=== PATIENT | male | born 1955 | race Caucasian/White ===

== ENCOUNTER 2020-01-26 08:00 | Outpatient (NON) | payer BC, SELFPAY ==
[2020-01-27 13:05] LABS: SARS-CoV-2 RNA PCR Negative
== END 2020-01-26 08:01 ==
PROVIDERS: PCP Family Medicine; Visit Provider Physician Assistant
DX: R07.89 Other chest pain (principal); R09.89 Other specified symptoms and signs involving the circulatory and respiratory systems; Z20.828 Contact with and (suspected) exposure to other viral communicable diseases
CPT/HCPCS: 87635; C9803; U0003

== ENCOUNTER 2020-01-26 23:34 | Emergency (ER) | payer BC, SELFPAY ==
--- NOTE | ~2020-01-26 | XR_ITS ---
EXAMINATION: XR chest 1V portable DATE: 01/27/2020 00:47 INDICATION: Chest pain. TECHNIQUE: A single frontal view of the chest was obtained. COMPARISON: None. FINDINGS: The chest demonstrates clear lungs without pneumonia, pleural effusion, or pneumothorax. Th e heart size is normal. IMPRESSION: 1. No acute cardiopulmonary disease. Reviewed, dictated and finalized at location A.
--- NOTE | 2020-01-26 23:43 | ECG_ITS ---
Measurements Intervals [place] Rate: 67 P: 11 SD: 163 QRS: -9 QRSD: 102 T: 17 QT: 395 QTc: 420 Interpretive Statements SINUS RHYTHM BORDERLINE T WAVE ABNORMALITY- INFERIOR LEADS BASELINE ARTIFACT- I, II, III, AVR, AVL, V1 BORDERLINE ECG Electronically Signed On 01-27-2020 7:12:23 CDT by Irving Dejesus D.O.
[2020-01-26 23:47] VITALS: BP 160/93; PULSE 71; RESP 22; TEMP 36.6; O2SAT 100
[2020-01-27] VITALS (8 sets, daily range): BP systolic 97–161; BP diastolic 63–90; PULSE 58–67; RESP 15–24; TEMP 36.3–37.1; O2SAT 97–100
[2020-01-27 00:05] LABS: Basophils Absolute Auto 0.1 K/mm3 (0.0-0.1); Basophils Percent Auto 0.7 % (0.2-1.2); Eosinophils Absolute Auto 0.1 K/mm3 (0-0.3); Eosinophils Percent Auto 0.6 % (0-4.4); Hematocrit 43.9 % (42.0-52.0); Hemoglobin 15.3 g/dL (14.0-18.0); Immature Granulocyte Absolute 0.03 K/mm3 (0.00-0.031); Immature Granulocyte Percent A 0.4 % (0-0.5); Lymphocytes Absolute Auto 2.87 K/mm3 (0.9-3.2); Lymphocytes Percent Auto 35.2 % (18.3-44.2); Mean Corpuscular HGB Conc 34.9 g/dl (32-36); Mean Corpuscular Hemoglobin 31.2 pg (26-34); Mean Corpuscular Volume 89.4 fl (80-100); Mean Platelet Volume 9.2 fl (7.4-10.4); Monocytes Percent Auto 12.4 % (2.6-8.5); Neutrophils Absolute Auto 4.1 K/mm3 (1.3-6.7); Neutrophils Percent Auto 50.7 % (45.5-73.1); Platelet Count Result 298 k/mm3 (150-375); Red Blood Count 4.91 M/mm3 (4.6-6.20); White Blood Count 8.2 K/mm3 (4.5-10.0)
[2020-01-27 00:12] LABS: Prothrombin Time 13.3 Seconds (11.1-14.7)
[2020-01-27 00:13] LABS: Partial Thromboplastin Time 30.9 SECONDS (22.3-36.8)
[2020-01-27] MEDS: ASPIRIN 81 MG CHEWABLE TABLET 324 MG PO (00:15)
[2020-01-27 00:16] LABS: Blood Urea Nitrogen 11 mg/dL (9-20); Carbon Dioxide 28 mmol/L (22-30); Chloride 100 mmol/L (98-107); Estimated CRCL calculation 100 ml/min; Estimated Glomerular Filt Rate > 60; Glucose 125 mg/dL (75-110); Sodium 135 mmol/L (137-145)
[2020-01-27 00:27] LABS: Troponin I < 0.012 ng/mL (0.000-0.034)
--- NOTE | 2020-01-27 02:27 | PC.NURSE ---
Called lab to add on BNP
--- NOTE | 2020-01-27 02:35 | ED.CHESTPAIN ---
HPI - Chest Pain General Chief Complaint: Chest Pain Stated Complaint: chest tightness Time Seen by Provider: 01/27/20 02:21 History of Present Illness HPI narrative: Patient presents with his son for chest tightness for 2 days, and muscle aches. Started 4 days ago, and got worse yesterday. He has not had any fever, chills or sweats. He was tested for the virus yesterday and hopes to get the results today. He has been very good about isolation, but is supposed to go back to work next week. He he teaches food safety. His appetite is good bowels are moving making normal urine, no trouble breathing no cough. He has high blood pressure which is well controlled on his medications. He does not smoke drink or do drugs His surgeries include circumcision and wisdom teeth. MD complaint: chest pain Related Data Home Medications Medication Instructions Recorded Confirmed multivitamin 1 tablet PO DAILY 09/29/19 Allergies Allergy/AdvReac Type Severity Reaction Status Date / Time codeine Allergy Unknown Unknown Verified 09/30/19 11:01 Review of Systems Review of Systems: Narrative: CONSTITUTIONAL: Denies fever, chills, or sweats. EYES: Denies visual changes, redness, or discharge. ENT: Denies rhinorrhea, congestion, sore throat, or otalgia. CARDIOVASCULAR: Denies palpitations, or edema. RESPIRATORY: Denies cough or dyspnea. GASTROINTESTINAL: Denies abdominal pain, nausea, vomiting, or diarrhea. GENITOURINARY: Denies dysuria or hematuria. SKIN: Denies rash or itching. MUSCULOSKELETAL: Denies back pain, joint pain NEUROLOGIC: Denies headache, numbness, or weakness. PSYCHIATRIC: Denies anxiety or depression. [facility] Past Medical History Medical History (Updated 01/27/20 @ 04:10 by Haydee Chamberlain MD) Body aches Surgical History Surgical History History of circumcision History of wisdom tooth extraction Family History Family History Father Patient's father is in good health Sibling Family history of pancreatic cancer Mother Family history of malignant neoplasm of thyroid Social History Social History (Updated 01/27/20 @ 02:38 by Haydee Chamberlain MD) Smoking status: Never smoker Alcohol intake: current Substance use: never Exam Narrative: Exam Narrative: GENERAL: Well-appearing, well-nourished, and in no acute distress.Overweight HEAD: Normocephalic, atraumatic. EYES: PERRLA and EOMI. ENT: Nares clear, no rhinorrhea or epistaxis. Mucous membranes moist. NECK: Supple. CHEST: Clear to auscultation. No respiratory distress. HEART: Regular rate and rhythm. No murmur heard. Normal peripheral pulses. ABDOMEN: Soft, nontender, nondistended, normal active bowel sounds. EXTREMITIES: Normal range of motion. No edema. SKIN: Warm, dry, no rash. NEURO: No focal deficits. Alert and oriented x3. PSYCH: Normal mood and affect.Charming. Course Reevaluation(s) Reevaluation #1: As the patient was getting his blood drawn for the second troponin, he became diaphoretic and pale, and his blood pressure dropped. IV fluids were started, but he regained his composure quickly. His test did not show any signs of heart disease, and he can be discharged to Dr. Roger's care. Date: 01/27/20 Time: 04:11 Vital Signs Vital signs: Vital Signs Temperature 97.9 F 01/26/20 23:47 Pulse Rate 71 01/26/20 23:47 Respiratory Rate 22 H 01/26/20 23:47 Blood Pressure 160/93 H 01/26/20 23:47 Pulse Oximetry 100 01/26/20 23:47 Temperature 98.7 F 01/27/20 02:22 Pulse Rate 58 L 01/27/20 03:32 Respiratory Rate 20 01/27/20 03:32 Blood Pressure 121/72 01/27/20 03:29 Pulse Oximetry 99 01/27/20 03:32 MDM - Chest Pain MDM Narrative Medical decision making narrative: Patient is atypical in his presentation for chest pain. His labs EKG and chest x-ray do not support any coronary artery disease. We will obtain
[2020-01-27 02:53] LABS: NT Pro B Type Natriuretic Pept 42 PG/ML (5-100)
[2020-01-27] MEDS: SODIUM CHLORIDE 0.9% IV 1,000 ML 999 ML (03:08)
--- NOTE | 2020-01-27 03:15 | PC.NURSE ---
While drawing patient's 3 hour troponin, patient sat up and began to feel off and became diaphoretic. Patient's heart rate began to range from 53-56 and blood pressure was 97/63. EDP Bulmaro was notified and 1L normal saline was started on patient.
[2020-01-27 03:38] LABS: Troponin I < 0.012 ng/mL (0.000-0.034)
== END 2020-01-27 04:24 | disposition home or self-care (01) ==
PROVIDERS: Emergency Provider Emergency Medicine; PCP Family Medicine
DX: R07.89 Other chest pain (principal); I10 Essential (primary) hypertension; R55 Syncope and collapse; M79.10 Myalgia, unspecified site; R94.31 Abnormal electrocardiogram [ECG] [EKG]
CPT/HCPCS: 36415; 71045; 80048; 83880; 84484; 85025; 85610; 85730; 93005; 96360; 99284; A9270; J7030

== ENCOUNTER 2020-09-27 10:47 | Observation (INO) | payer BC, SELFPAY ==
--- NOTE | ~2020-09-27 | XR_ITS ---
EXAMINATION: XR chest 2V EXAM DATE: 09/27/2020 11:55 INDICATION: Mid to left-sided chest pain. TECHNIQUE: Frontal and lateral projections of the chest obtained and reviewed. Comparison is made to prior examination from 01/27/2020. FINDINGS: The lungs are clear. There are no pleural effusions. The cardiomediastinal silhouette is within nor mal limits. There is no pneumothorax suspected. The bones and soft tissues are unremarkable. IMPRESSION: No acute cardiopulmonary findings. Reviewed, dictated and finalized at location B. CAL AND SCIENTIFIC ILLUSTRATOR
--- NOTE | 2020-09-27 10:50 | ECG_ITS ---
Measurements Intervals [place] Rate: 84 P: 12 VT: 175 QRS: 12 QRSD: 92 T: 33 QT: 346 QTc: 409 Interpretive Statements SINUS RHYTHM BORDERLINE T WAVE ABNORMALITY- ANTEROLATERAL LEADS BASELINE ARTIFACT- I, II, III, AVR, AVL, AVF, V4-V6 BORDERLINE ECG Electronically Signed On 09-27-2020 12:07:12 CERTIFIED OPHTHALMIC TECHNICIAN by Irving Dejesus D.O.
[2020-09-27 10:51] VITALS: BP 147/96; PULSE 87; RESP 16; TEMP 36.3; O2SAT 99
[2020-09-27 11:12] LABS: Basophils Absolute Auto 0.1 K/mm3 (0.0-0.1); Basophils Percent Auto 0.9 % (0.2-1.2); Eosinophils Percent Auto 0.4 % (0-4.4); Hematocrit 43.7 % (42.0-52.0); Hemoglobin 15.2 g/dL (14.0-18.0); Immature Granulocyte Absolute 0.03 K/mm3 (0.00-0.031); Immature Granulocyte Percent A 0.4 % (0-0.5); Lymphocytes Absolute Auto 1.38 K/mm3 (0.9-3.2); Lymphocytes Percent Auto 20.5 % (18.3-44.2); Mean Corpuscular HGB Conc 34.8 g/dl (32-36); Mean Corpuscular Hemoglobin 31.2 pg (26-34); Mean Corpuscular Volume 89.7 fl (80-100); Mean Platelet Volume 9.2 fl (7.4-10.4); Monocytes Absolute Auto 0.8 K/mm3 (0.1-0.6); Monocytes Percent Auto 11.7 % (2.6-8.5); Neutrophils Absolute Auto 4.5 K/mm3 (1.3-6.7); Neutrophils Percent Auto 66.1 % (45.5-73.1); Platelet Count Result 282 k/mm3 (150-375); Red Blood Count 4.87 M/mm3 (4.6-6.20); Red Cell Distribution Width 12.2 % (11.5-14.5); White Blood Count 6.7 K/mm3 (4.5-10.0)
[2020-09-27 11:22] LABS: INR 1.1; Partial Thromboplastin Time 30.3 SECONDS (22.3-36.8); Prothrombin Time 14.9 Seconds (11.1-14.7)
[2020-09-27 11:24] LABS: Anion Gap 11 mmol/L (8-16); Blood Urea Nitrogen 10 mg/dL (9-20); Calcium 9.8 mg/dL (8.4-10.2); Carbon Dioxide 23 mmol/L (22-30); Chloride 104 mmol/L (98-107); Estimated CRCL calculation 132 ml/min; Estimated Glomerular Filt Rate > 60; Glucose 142 mg/dL (75-110); Potassium 4.1 mmol/L (3.4-5.0); Sodium 138 mmol/L (137-145)
[2020-09-27 11:36] LABS: Troponin I < 0.012 ng/mL (0.000-0.034)
[2020-09-27 12:21] VITALS: PULSE 93
--- NOTE | 2020-09-27 12:24 | ED.CHESTPAIN ---
HPI - Chest Pain General Chief Complaint: Chest Pain Stated Complaint: chest discomfort x 1 day Time Seen by Provider: 09/27/20 12:17 Source: RN notes reviewed History of Present Illness HPI narrative: Patient presents emergency department from home for left-sided chest pain. Patient states he has had intermittent pain in his left upper chest since last night the pain is described as a pressure and radiates in the left shoulder. Nothing seems to make the pain better or worse denies any associated shortness of breath. Denies any fevers or chills abdominal pain nausea vomiting or any other symptoms. Patient denies any previous cardiac history. States he does have a history of hypertension Related Data Home Medications Medication Instructions Recorded Confirmed multivitamin 1 tablet PO DAILY 09/29/19 09/19/20 Allergies Allergy/AdvReac Type Severity Reaction Status Date / Time codeine AdvReac Unknown Unknown Verified 09/27/20 10:56 Review of Systems Review of Systems: Narrative: Gen.: Denies fevers or chills ENT: Denies congestion Respiratory: Denies shortness of breath or cough CV see HPI GI: Denies abdominal pain nausea, emesis or diarrhea Musculoskeletal: Denies back pain or muscle pain Neuro: Denies numbness, tingling, weakness or focal weakness Skin: Denies rash Except as documented, all other systems reviewed and negative [facility] Past Medical History Medical History (Updated 09/27/20 @ 13:14 by Jamie Martin DO) Body aches Chronic constipation HTN (hypertension) Surgical History Surgical History History of circumcision History of wisdom tooth extraction Family History Family History Father Patient's father is in good health Sibling Family history of pancreatic cancer Mother Family history of malignant neoplasm of thyroid Social History Social History Smoking status: Never smoker Second hand tobacco smoke exposure: No Alcohol intake: current Drinks per week: 5 Substance use: never Substance use type: does not use Gender identity (if verbalized by the patient): Male Exam Narrative: Exam Narrative: APPEARANCE: No acute distress, nontoxic, resting in bed EYES: EOMI HEENT: Normocephalic, atraumatic, OMM RESPIRATORY: No respiratory distress Clear to auscultation bilaterally with no rhonchi wheezing or rales. CARDIOVASCULAR: Regular rate and rhythm without murmurs rubs or gallops. ABDOMINAL: Soft, nontender, nondistended, no rebound or guarding MUSCULOSKELETAl: Moves all extremities. No clubbing, cyanosis or edema. NEURO: Awake and alert. Following commands, speech normal, no focal deficits SKIN:: Warm, dry. No rashes lesions or abrasions PSYCHIATRIC: Normal affect/mood, Course Course Emergency Course: Patient states pain is resolved at this time Discussed with Dr. Dudley presentation work-up agrees with admission [facility] at this time Discussed with patient and family results of workup and diagnosis. Discussed need for admission. Patient and family understand and agree to current treatment plan Vital Signs Vital signs: Vital Signs Temperature 97.3 F L 09/27/20 10:51 Pulse Rate 87 09/27/20 10:51 Respiratory Rate 16 09/27/20 10:51 Blood Pressure 147/96 H 09/27/20 10:51 Pulse Oximetry 99 09/27/20 10:51 Temperature 97.3 F L 09/27/20 10:51 Pulse Rate 91 09/27/20 13:09 Respiratory Rate 20 09/27/20 13:09 Blood Pressure 129/82 09/27/20 13:09 Pulse Oximetry 94 09/27/20 13:09 MDM - Chest Pain Lab Data Result diagrams: 09/27/20 11:04 09/27/20 11:04 Labs: Lab Results 09/27/20 09/27/20 09/27/20 Range/Units 11:04 11:04 11:04 WBC 6.7 (4.5-10.0) K/mm3 RBC 4.87 (4.6-6.20) M/mm3 Hgb 15.2 (14.0-18.0) g/dL Hct 43.7 (42.0-52
[2020-09-27] MEDS: ASPIRIN 81 MG CHEWABLE TABLET 324 MG PO (12:29)
[2020-09-27] MEDS: KETOROLAC 30 MG/ML VIAL (*BKC) IV PUSH (12:29)
[2020-09-27 13:09] VITALS: BP 129/82; PULSE 91; RESP 20; O2SAT 94
[2020-09-27 14:52] LABS: Cholesterol 218 mg/dL (0-200); HDL Direct 51 mg/dL; Triglycerides 119 mg/dL (<150)
[2020-09-27 15:03] LABS: LDL Cholesterol Direct 124 mg/dL
[2020-09-27 15:05] LABS: Troponin I < 0.012 ng/mL (0.000-0.034)
[2020-09-27 15:09] VITALS: BP 139/91; PULSE 84; RESP 14; TEMP 36.8; O2SAT 98; BMI 34.3
--- NOTE | 2020-09-27 15:21 | ADMGEN ---
This patient, Ollie Anderson, was admitted to [facility]. Patient/family oriented to hospital policies and general routines including ID bracelet, bed and alarms, visiting hours, pain management, procedures, bathroom and other care routines, personal items, smoking policy, room service/diet, and visiting hours. Information on how to activate the Rapid Response Team has been discussed. Patient/Family are encouraged to report perceived risks to care and to ask questions if they do not understand what they are told or what they should do.
[2020-09-27 16:00] VITALS: BP 139/91; PULSE 72; PULSE 73; RESP 15; TEMP 36.6; O2SAT 98
--- NOTE | 2020-09-27 16:02 | ECG_ITS ---
Measurements Intervals [place] Rate: 78 P: 2 MD: 161 QRS: -9 QRSD: 99 T: 24 QT: 376 QTc: 429 Interpretive Statements SINUS RHYTHM EARLY PRECORDIAL R/S TRANSITION BORDERLINE T WAVE ABNORMALITY- INFERIOR LEADS BASELINE ARTIFACT- I, II, III, AVR, AVL, AVF, V1 BORDERLINE ECG Electronically Signed On 09-27-2020 18:24:44 SWINGING CUT OFF SAW OPERATOR by Irving Dejesus D.O.
[2020-09-27 16:20] VITALS: O2SAT 98
[2020-09-27 17:53] LABS: Troponin I < 0.012 ng/mL (0.000-0.034)
--- NOTE | 2020-09-27 18:28 | PM.IMHP ---
H&P: HPI History of Present Illness Date/Time: Date of service: 09/27/20 18:28 Cardiology short-stay H and P summary. Chief Complaint: Chest pain since last night Narrative: Ollie Anderson is a 65 year old male with a history of hypertension, obesity, and chronic back pain with more recent issues with recurring constipation he states he was in his usual state of health when he noted day prior to presentation he taking MiraLax after his morning medications of breakfast and had a large bowel movement. 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 He then had another large bowel movement and felt better subsequently. He was able to complete eating as class and then began to feel less well and upon arrival home is able to relax and eat dinner and again began to feel better. Later that evening he began to notice some mild left upper chest achiness and or tightness which radiated to his left shoulder. He states there was no associated nausea, diaphoresis, shortness of breath, dizziness, lightheadedness, palpitations. He has never experienced symptoms similar to this. He noted no change with position, activity, deep breathing, coughing or meals. He states he went to bed with this discomfort which was quite mild and then awoke transiently during the night and noted this was persistent. He woke in the morning felt okay but still had mild chest discomfort. He decided take a shower and get ready for the day a given persistence he became concerned and presented to the ER for evaluation. In the ER he was given aspirin and Toradol and chest pain has essentially resolved. He has ruled out for myocardial infarction with negative serial enzymes and his EKG did not reveal ischemic changes. He has no history of CAD and feels well and would like to be discharged home. Review of Systems Review of Systems: All systems reviewed & are unremarkable except as noted in HPI and below Constitutional: Constitutional: Reports as per HPI and Reports no additional constitutional complaints Eyes: Eyes: Reports as per HPI and Reports no additional eye complaints ENT: Reports system reviewed and no additional complaints, except as documented and Reports as per HPI Cardiovascular: Cardiovascular: Reports as per HPI, Reports no additional cardiovascular complaints and Reports chest pain Respiratory: Respiratory: Reports as per HPI and Reports no additional respiratory complaints Gastrointestinal: Gastrointestinal: Reports as per HPI, Reports no additional gastrointestinal complaints and Reports constipation Genitourinary: Genitourinary: Reports no additional male genitourinary complaints and Reports as per HPI Musculoskeletal: Musculoskeletal: Reports no additional musculoskeletal complaints, Reports as per HPI and Reports back pain Integumentary/Breasts: Skin/Breast: Reports system reviewed and no additional complaints, except as docu and Reports as per HPI Neurologic: Reports system reviewed and no additional complaints, except as documented and Reports as per HPI Psychiatric: Psychiatric: Reports no additional psychiatric complaints and Reports as per HPI Endocrine: Endocrine: Reports no additional endocrine complaints and Reports as per HPI Hematologic/Lymphatic: Hematologic/Lymphatic: Reports no additional hematologic/lymphatic complaints and Reports as per HPI Allergic/Immunologic: Allergic/Immunologic: Reports no additional allergic/immunologic complaints and Reports as per HPI PMFSH Past Medical History Medical History Body aches Chronic constipation HTN (hypertension) Surgical History Surgical History History of circumcision History of wisdom tooth extraction Family History Family History Father Patient's father is in good h
--- NOTE | 2020-09-27 19:02 | ECG_ITS ---
Measurements Intervals [place] Rate: 70 P: 17 IA: 170 QRS: -9 QRSD: 94 T: 18 QT: 393 QTc: 427 Interpretive Statements SINUS RHYTHM EARLY PRECORDIAL R/S TRANSITION BASELINE ARTIFACT- I, II, III, AVR, AVL, AVF, V1-V2 BORDERLINE ECG Electronically Signed On 09-27-2020 14:56:05 PRODUCTION LABORER by Irving Dejesus D.O.
== END 2020-09-27 18:50 | disposition home or self-care (01) ==
LOC: ANHED 13:14 → ANHCPC 13:42
PROVIDERS: Emergency Medicine; Admitting Provider Internal Medicine Cardiovascular Disease; Emergency Provider Emergency Medicine; PCP Family Medicine; Visit Provider Internal Medicine Cardiovascular Disease
DX: R07.89 Other chest pain (principal); K59.09 Other constipation; I10 Essential (primary) hypertension; M54.9 Dorsalgia, unspecified; G89.29 Other chronic pain; E66.9 Obesity, unspecified; E78.5 Hyperlipidemia, unspecified; Z68.34 Body mass index [BMI] 34.0-34.9, adult
CPT/HCPCS: 36415; 71046; 80048; 80061; 84484; 85025; 85610; 85730; 93005; 96374; 99285; A9270; G0378; J1885

== ENCOUNTER → 2021-02-05 03:41 | Outpatient (CLI) | payer BC, SELFPAY ==
[2021-02-07 12:49] LABS: SARS-CoV-2 RNA PCR Negative
== END ==
PROVIDERS: PCP Family Medicine; Visit Provider Plastic Surgery
DX: Z01.812 Encounter for preprocedural laboratory examination (principal); Z20.822 Contact with and (suspected) exposure to COVID-19
CPT/HCPCS: C9803; U0003; U0005

== ENCOUNTER 2021-02-08 00:53 | Day surgery (SDC) | payer BC, SELFPAY ==
[2021-01-30 10:59] VITALS: BMI 33.9
--- NOTE | 2021-02-07 10:35 | WPDANESEPPF ---
Anes - Initial Pre Proc Eval Procedure: Operation Date: 02/08/21 12:00 Proposed Procedures p Left Partial Palmar Fasciectomy - Jamie Yan MD Date/Time: 02/07/21 10:35 Surgeon: Jamie Yan MD Pre Op Diagnosis: dupuytrens contracture left 5th finger Patient Data Age: 66 Gender: M Height: 1.91 m Weight: 123 kg Allergies Allergy/AdvReac Type Severity Reaction Status Date / Time codeine AdvReac Mild Nausea Verified 02/08/21 10:10 Home Medications Medication Instructions Recorded Confirmed Type multivitamin 1 tablet PO DAILY 09/29/19 02/08/21 History tramadol 50 mg tablet 50 mg PO Q8H PRN #270 tablet 12/18/20 02/08/21 Rx montelukast 10 mg tablet 10 mg PO DAILY #90 tablet 01/29/21 01/30/21 Rx losartan 50 mg PO QAM 01/30/21 02/08/21 History polyethylene glycol 3350 [Miralax] 17 g PO DAILY 01/30/21 01/30/21 History Patient hx anesthesia problems: none Family hx anesthesia problems: none PMFSH Past Medical History Medical History (Updated 02/07/21 @ 10:34 by Marito Villar DO) Body aches Chronic constipation HTN (hypertension) Pure hypercholesterolemia Surgical History Surgical History History of circumcision History of wisdom tooth extraction Family History Family History Father Patient's father is in good health Sibling Family history of pancreatic cancer Mother Family history of malignant neoplasm of thyroid Social History Social History (Updated 10/18/20 @ 13:27 by Roxy Brunner) Smoking status: Never smoker Second hand tobacco smoke exposure: Yes Alcohol intake: current Drinks per week: 1 Substance use: never Substance use type: does not use Living arrangements: alone Gender identity (if verbalized by the patient): Male Spiritual care concerns: No Anes - Eval Final PreProcedure Day of Procedure 02/07/21 10:35 Patient weight: obese Heart: regular rate and rhythm Lungs: clear to auscultation and normal air movement Airway: Mallampati scale class II Neurological: alert and oriented Last oral intake: >/= 8 hours ASA classification: III Emergent: no Anesthetic plan: proceed Anesthesia type and monitoring: general LMA and standard monitoring Informed Consent: The patient's anesthetic plan and its attendant risks and benefits were discussed with the patient/family/POA. Questions were solicited and answers provided to the satisfaction of the patient/family/POA.
[2021-02-08] VITALS (9 sets, daily range): BP systolic 111–150; BP diastolic 63–90; PULSE 66–84; RESP 12–18; TEMP 36.5–37; O2SAT 95–100; BMI 33.9
[2021-02-08] MEDS: LACTATED RINGERS 1,000 ML 30 ML IV CONT ×2 (10:30→14:07)
--- NOTE | 2021-02-08 11:39 | WPDHPUPDATE1 ---
History and Physical Update Update Date/Time: 02/08/21 11:39 History and Physical has been reviewed, including an updated exam of the patient. There are NO changes in the patient's condition. Risks, benefits, and alternatives have been discussed and questions answered. Patient agrees to proceed with procedure.
[2021-02-08] MEDS: LIDO 1%/EPINEPHRINE 1:100,000 50 ML VIAL 20 ML INFILTRATE (12:45)
--- NOTE | 2021-02-08 14:04 | P.OPB_ITS ---
Procedure Note - Brief Procedure Note - Brief Date of procedure: 02/08/21 Pre-op diagnosis: dupuytrens contracture left 5th finger Post-op diagnosis: same Procedure performed: Left partial palmar fasciectomy. Anesthesia: GLMA Surgeon: Jamie Yan MD Box Gluer: Mahamed Estimated blood loss (mL): 10 Tourniquet time (min): 60 Drains: No Packing: No Pathology: none sent Complications: No immediate complications Condition: stable Disposition: PACU
--- NOTE | 2021-02-08 14:06 | P.OP_ITS ---
Procedure Note - Detailed Date of procedure: 02/08/21 Pre-op diagnosis: dupuytrens contracture left 5th finger Post-op diagnosis: same Procedure performed: Partial palmar fasciectomy of the left hand Description of procedure: The hand was marked as the patient was in the holding area. He was transported to the operating room and placed supine on the operating table. A time-out was held and confirmed. The patient was given an LMA general anesthesia. The left extremity was prepped and draped in usual fashion. Markings were made for incisions. These areas were infiltrated with 1% lidocaine with epinephrine. The tourniquet was related to 250 mmHg. The incisions were made as marked. A transverse incision at the distal palmar crease was used to access the pre tendinous cord. The 2nd incision was a volar midline incision that was extended proximal to the digital palmar crease, this was immediately converted to a Z-plasty and stay sutures were placed at the tips for retention. The pretendinous cord was continued to be dissected into the finger. This immediately converted to a large spiral cord on the ulnar side only. Digital neurovascular bundle on the radial side was identified and preserved and was not involved in the disease. The spiral cord was Lower and dense. This was carefully dissected by exposure of the ulnar digital nerve out to the distal interphalangeal joint. Removal of all the scored permitted full extension of the digit. The tourniquet was released. The 2 Z-plasties were incised on the digit and used for closure. Closure was done with running and interrupted 4-0 nylon. Small bulky bandage was applied no additional anesthetic was used. The patient has tramadol at home. He is discharged with instructions in wound care and follow-up [facility] Surgeon: Jamie Yan MD Marine Engine Driver: Mahamed Estimated blood loss (mL): 10 Tourniquet time (min): 60 Drains: No Packing: No Pathology: none sent Complications: No immediate complications Condition: stable Disposition: PACU
[2021-02-08] MEDS: ONDANSETRON INJ 4 MG/2 ML VIAL IV PUSH (14:27)
[2021-02-08] MEDS: fentaNYL CITRATE INJ (*CRX) 100 MCG/2 ML VIAL 25 MCG IV PUSH ×3 (14:38→14:56)
== END 2021-02-08 16:13 | disposition home or self-care (01) ==
PROVIDERS: PCP Family Medicine; Visit Provider Plastic Surgery
PROC: (CPT 26045; principal; 2021-02-08 12:00)
DX: M72.0 Palmar fascial fibromatosis [Dupuytren] (principal); I10 Essential (primary) hypertension; E78.00 Pure hypercholesterolemia, unspecified; K59.09 Other constipation; E66.9 Obesity, unspecified; Z68.33 Body mass index [BMI] 33.0-33.9, adult
CPT/HCPCS: 26123; A9270; J1100; J2250; J2405; J2704; J3010; J7120

== ENCOUNTER 2021-05-14 11:00 | Outpatient (RCR) | payer BC, SELFPAY ==
--- NOTE | 2021-03-22 13:47 | OTOPEVAL ---
OCCUPATIONAL THERAPY INITIAL EVALUATION: 03/22/2021 Thank you for referring Ollie Anderson to [facility].? The patient is scheduled to be seen for therapy? 1-2 x/week for 4 weeks. Please review, sign, date and return this plan of care ALAN. I agree with and certify that the following plan of care is medically necessary. Referring Physician Date Attending Provider: Jamie Yan MD *OT Outpatient Evaluation Start: 03/22/21 12:31 Freq: Status: Active Protocol: Document 03/22/21 12:35 KJL (Rec: 03/22/21 13:47 KJL [id number]) Therapy Assessment Status Assessment Status Assessment Status Evaluation Evaluation Information Problem Diagnosis Dupuytrens of L UE digit 5 Onset January Additional Evaluation Detail Patient underwent partial palmar fasciectomy for L hand digit 5 on February 08, 2021 for dupuytrens contracture. Subjective Information Patient repots since surgery Query Text:As Reported By Patient/ has experienced difficulty Family with bending digit V, writing, gripping/grasping objects, numbness/tingling on ulnar aspect of hand and digit V. Prior Level of Function Activity Level (Last 3 Months) Occupation Teacher Hand Dominance Left Activity of Daily Living Ability Independent Indoor/Home Mobility Independent Community Mobility Independent Stairs Ability Independent Functional Cognition (Planning, Shopping Independent , Taking Medications) Cooking Yes Cleaning Yes Laundry Yes Shopping Yes Driving Yes Home Setting Living Situation Alone Pain Assessment Timing of Pain Assessment Timing of Pain Assessment Assessment Pain Scale Pain Scale Used Numeric (1 - 10) Self Report Pain Assessment Left Finger, Little Reported Pain Level 5 Pain Description Numbness,Sharp,Tingling Lowest Pain Intensity 0 Greatest Pain Intensity 6 Additional Pain Comments occasional 6/10 sharp pain in digit V Pain Score Pain Score 5: Self Report Interventions Used Interventions Used By Clinicians Exercise,Rest Upper Extremity Range of Motion General Upper Extremity Range of Motion Reason Not Measured WNL/Left,WNL/Right Gross Upper Extremity Range of Motion bilateral UE active ROM is WFL Comments except for L UE hand Finger Range of Motion Left Reason Not Measu
--- NOTE | 2021-04-17 14:12 | OTOPEVAL ---
OCCUPATIONAL THERAPY RE-EVALUATION REPORT 04/17/2021 Ollie presents today after 5 OT sessions for re-evaluation of the left hand following partial fasciectomy left hand digit V. The small finger has excellent functional extension with only 10* lag at the PIP joint. Gross flexion continues to have limitations, but marked improvement since the initial evaluation. Continued skilled OT indicated for use of modalities, ROM, manual treatment, and progressive strengthening to facilitate optimal composite flexion of the left 5th digit as well as return of functional lead bi developer strength for ADLs. Thank you for referring Ollie Anderson to [facility].? The patient is scheduled to be seen for therapy? 1x/week for 4 weeks. Please review, sign, date and return this plan of care ALAN. I agree with and certify that the following plan of care is medically necessary. Referring Physician Date Referring Provider: Jamie Yan MD *OT Outpatient Re-Evaluation Diagnosis Dupuytren's of L hand digit 5 Onset January Additional Evaluation Detail Patient underwent partial palmar fasciectomy for L hand digit 5 on February 08, 2021 for Dupuytren's contracture. He has been working with therapy since 03/22/21 and is compliant with all HEPs. Subjective Information Patient repots since beginning Query Text:As Reported By Patient/ therapy ~4 weeks ago the Family finger is bending better and functionally he is now able to use the left hand to wash his hair, write, and reports no difficulties with gripping objects such as his water container. He states his biggest problem is the residual numbness on the palmar aspect of the pinky finger. 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 Pain Assessment Timing of Pain Assessment Timing of Pain Assessment Re-assessment Pain Scale Pain Scale Used Numeric (1 - 10) Self Report Pain Assessment Left Finger, Little Reported Pain Level 0 Lowest Pain Intensity 0 Greatest Pain Intensity 3 Pain Score Pain Score 0: Self Report Additional Pain Score Comments Patient no longer has sharp/ shooting mehrdad
--- NOTE | 2021-05-14 11:38 | OTOPEVAL ---
OCCUPATIONAL THERAPY RE-EVALUATION AND DISCHARGE NOTE 05/14/21 Ollie presents today after 8 OT sessions for re-evaluation of the left hand following partial fasciectomy left hand digit V. The small finger has excellent functional extension with only 10* lag at the PIP joint. Gross flexion continues to have limitations, but he continues to show improvement since the last re-evaluation. At this time the patient has all necessary materials and HEPs to continue to work towards greater functional flexion of the small finger. He has no further questions and is in agreement with discharge. Thank you for referring Ollie Anderson to [facility]. Please review, sign, date and return this D/C Note ALAN. I agree with and certify that the following plan of care is medically necessary. Referring Physician Date Referring Provider: Jamie Yan MD *OT Outpatient Re-Evaluation Start: 03/22/21 12:31 Problem Diagnosis Dupuytren's of digit 5, left hand Onset January Additional Evaluation Detail Patient underwent partial palmar fasciectomy for L hand digit 5 on February 08, 2021 for Dupuytren's contracture. He has been working with therapy since 03/22/21 and is compliant with all HEPs. Subjective Information Patient reports that his hand Query Text:As Reported By Patient/ pain is subsiding, noting Family having no pain most of the time and only 2/10 at worst . Functionally he reports there isn't anything I can't do noting return to full left hand use. Continues to report that the numbness is the most aggravating . Pain Assessment Timing of Pain Assessment Timing of Pain Assessment Re-assessment Pain Scale Pain Scale Used Numeric (1 - 10) Self Report Pain Assessment Left Finger, Little Reported Pain Level 0 Lowest Pain Intensity 0 Greatest Pain Intensity 2 Pain Score Pain Score 0: Self Report Upper Extremity Range of Motion Finger Range of Motion Left Little Finger MCP Joint Flexion - Active 75 Little Finger MCP Joint Flexion - 90 Passive Little Finger PIP Joint Flexion - Active 70 Little Finger PIP Joint Flexion - 90 Passive Little Finger PIP Joint Extension - -10 Active Little Finger PIP Joint Extension - -5 Passive Little Finger DIP Joint Flexion - Active 25 Little Finger DIP Joint Flexion - 40 Passive Little Finger Tip to Base of Palm - 3 Active Finger Range of Motion Comments
== END 2021-05-14 17:21 | disposition home or self-care (01) ==
LOC: ANHOT 11:00
PROVIDERS: PCP Family Medicine; Visit Provider Plastic Surgery
DX: Z48.89 Encounter for other specified surgical aftercare (principal)
CPT/HCPCS: 97018; 97035; 97110; 97140; 97165

== ENCOUNTER 2022-05-12 10:02 | Emergency (ER) | payer MEDICARE, SELFPAY ==
--- NOTE | 2022-05-12 10:08 | ED.CHESTPAIN ---
HPI - Chest Pain General Chief Complaint: Chest Pain Stated Complaint: Chest Discomfort,Elevated BP Time Seen by Provider: 05/12/22 10:08 Source: patient Mode of arrival: ambulatory Limitations: no limitations History of Present Illness HPI narrative: 67 y/o male with history of HTN presented for c/o intermittent left chest pain since last evening. States pain started about 3 hours after cutting his grass, he did not need to stop or rest while cutting the grass. Pt took tums without change in symptoms. Describes this pain as ache or gas. Pain is not reproducible. Endorses it improves with rest. He checked his bp last night reports 187 systolic. Denies associated sob, wheezing, dizziness, nausea, vomiting or radiating pain to neck/jaw/back/arm. This morning bp 178/113 at home. Recent increase to losartan to 100mg daily on 05/01/22 per PCP. He has been monitoring bp at home and states it has been running high and feeling 'fuzzy' intermittently since dose increase. Related Data Home Medications Medication Instructions Recorded Confirmed multivitamin 1 tablet PO DAILY 09/29/19 05/12/22 polyethylene glycol 3350 17 gram 17 g PO DAILY 01/30/21 05/12/22 oral powder packet (Miralax) tramadol 50 mg tablet 50 mg PO DAILY 05/12/22 05/12/22 Allergies Allergy/AdvReac Type Severity Reaction Status Date / Time codeine AdvReac Mild Nausea Verified 05/12/22 10:05 Review of Systems Review of Systems: CONSTITUTIONAL: Denies body aches, fever, chills, or sweats. EYES: Denies visual changes, redness, or discharge. ENT: Denies rhinorrhea, congestion CARDIOVASCULAR: Reports left chest pain, Denies palpitations, or edema. RESPIRATORY: Denies cough or dyspnea. GASTROINTESTINAL: Denies abdominal pain, nausea, vomiting, or diarrhea. GENITOURINARY: Denies dysuria or hematuria. SKIN: Denies rash, itching, or wounds. MUSCULOSKELETAL: reports chronic back pain. NEUROLOGIC: Denies numbness, tingling, or weakness. All systems reviewed & are unremarkable except as noted in HPI and below PMFSH Past Medical History Medical History Body aches Chronic constipation HTN (hypertension) Obesity Pure hypercholesterolemia Surgical History Surgical History History of circumcision History of wisdom tooth extraction Status post Dupuytren's fasciectomy Family History Family History Father Patient's father is in good health Sibling Family history of pancreatic cancer Mother Family history of malignant neoplasm of thyroid Social History Social History Smoking status: Never smoker Second hand tobacco smoke exposure: Yes Alcohol intake: current Drinks per week: 2 Alcohol use details: socially Substance use: never Substance use type: does not use Gender identity (if verbalized by the patient): Male Spiritual care concerns: No Comments At time of signature, I have reviewed and agree with nursing past medical, surgical, social and family history unless otherwise noted. Please see nursing chart for further information. There is no relevant family history pertinent to the presenting complaint Exam Narrative: GENERAL: Well-appearing EYES: EOMI. No redness or drainage. Conjunctivae normal. ENT: Mucous membranes pink and moist. CHEST: No respiratory distress. Clear to auscultation. Left anterior chest is nontender with palpation. HEART: Regular rate and rhythm. No murmur appreciated. Normal peripheral pulses. ABDOMEN: Soft, nontender, nondistended, normal active bowel sounds. SKIN: Warm, dry, Capillary refill normal. Normal skin turgor. NEURO: Alert and oriented x3. Gait steady. PSYCH: Normal affect. Course Course Emergency Course: Patient is aware of diagnosis, understands and agrees to treatme
[2022-05-12 10:16] VITALS: BP 158/114; PULSE 100; RESP 18; TEMP 36.9; O2SAT 97
--- NOTE | 2022-05-12 10:19 | ECG_ITS ---
Measurements Intervals [place] Rate: 98 P: 39 [place]: 201 QRS: 64 QRSD: 98 T: 19 QT: 345 QTc: 442 Interpretive Statements SINUS RHYTHM NONSPECIFIC T-WAVE ABNORMALITY ABNORMAL ECG COMPARED TO ECG 09/27/2020 17:30:40 NO SIGNIFICANT CHANGES Electronically Signed On 05-12-2022 12:23:06 CDT by Bruce Leach M.D.
== END 2022-05-12 10:33 | disposition short-term general hospital (02) ==
PROVIDERS: Emergency Provider Nurse Practitioner Family; PCP Family Medicine
DX: R07.9 Chest pain, unspecified (principal); I10 Essential (primary) hypertension; E78.00 Pure hypercholesterolemia, unspecified; E66.9 Obesity, unspecified; Z68.34 Body mass index [BMI] 34.0-34.9, adult
CPT/HCPCS: 93005; 99213; G0463

== ENCOUNTER 2022-05-12 10:47 | Observation (INO) | payer MEDICARE, SELFPAY ==
[2022-05-12] VITALS (15 sets, daily range): BP systolic 83–158; BP diastolic 56–98; PULSE 53–105; RESP 16–20; TEMP 36.4–36.7; O2SAT 98–100; BMI 34.4
--- NOTE | ~2022-05-12 | XR_ITS ---
EXAMINATION: XR chest 2V DATE: 05/12/2022 11:36 INDICATION: Chest pain TECHNIQUE: PA and lateral views of the chest are obtained. COMPARISON: 09/27/2020 FINDINGS: The lungs are free of acute opacities. No pleural effusion or pneumothorax. The cardiomedia stinal silhouette is normal. There is a chronic compression fracture of the lower thoracic spine. IMPRESSION: 1. No acute cardiopulmonary abnormality. Reviewed, dictated and finalized at location A.
--- NOTE | 2022-05-12 10:52 | ECG_ITS ---
Measurements Intervals [place] Rate: 96 P: 22 [place]: 194 QRS: 6 QRSD: 98 T: 20 QT: 339 QTc: 429 Interpretive Statements SINUS RHYTHM INDETERMINATE AXIS NONSPECIFIC T-WAVE ABNORMALITY ABNORMAL ECG COMPARED TO ECG 05/12/2022 10:13:21 NO SIGNIFICANT CHANGES Electronically Signed On 05-12-2022 12:23:16 CDT by Bruce Leach M.D.
[2022-05-12 11:12] LABS: Basophils Absolute Auto 0.1 K/mm3 (0.0-0.1); Basophils Percent Auto 0.8 % (0.2-1.2); Eosinophils Percent Auto 0.5 % (0-4.4); Hematocrit 45.2 % (42.0-52.0); Hemoglobin 15.7 g/dL (14.0-18.0); Immature Granulocyte Absolute 0.03 K/mm3 (0.00-0.031); Immature Granulocyte Percent A 0.5 % (0-0.5); Lymphocytes Absolute Auto 1.18 K/mm3 (0.9-3.2); Lymphocytes Percent Auto 17.9 % (18.3-44.2); Mean Corpuscular HGB Conc 34.7 g/dl (32-36); Mean Corpuscular Hemoglobin 31.1 pg (26-34); Mean Corpuscular Volume 89.5 fl (80-100); Mean Platelet Volume 8.9 fl (7.4-10.4); Monocytes Absolute Auto 0.7 K/mm3 (0.1-0.6); Monocytes Percent Auto 10.3 % (2.6-8.5); Neutrophils Absolute Auto 4.6 K/mm3 (1.3-6.7); Platelet Count Result 291 k/mm3 (150-375); Red Blood Count 5.05 M/mm3 (4.6-6.20); Red Cell Distribution Width 12.2 % (11.5-14.5); White Blood Count 6.6 K/mm3 (4.5-10.0)
[2022-05-12 11:23] LABS: INR 1.1; Prothrombin Time 13.6 Seconds (11.1-14.7)
[2022-05-12 11:24] LABS: Partial Thromboplastin Time 31.4 SECONDS (22.3-36.8)
[2022-05-12 11:35] LABS: Alanine Aminotransferase 31 U/L (6-50); Albumin Level 4.7 g/dL (3.5-5.1); Alkaline Phosphatase 85 U/L (38-126); Anion Gap 10 mmol/L (8-16); Aspartate Amino Transferase 26 U/L (17-59); Bilirubin,Total 0.7 mg/dL (0.2-1.3); Blood Urea Nitrogen 13 mg/dL (9-20); Calcium 9.5 mg/dL (8.4-10.2); Carbon Dioxide 27 mmol/L (22-30); Chloride 101 mmol/L (98-107); Estimated CRCL calculation 114 ml/min; Estimated Glomerular Filt Rate > 60; Glucose 146 mg/dL (65-110); Lipase 38 U/L (23-300); Potassium 4.1 mmol/L (3.4-5.0); Sodium 138 mmol/L (137-145)
[2022-05-12 11:47] LABS: Troponin I < 0.012 ng/mL (0.000-0.034)
--- NOTE | 2022-05-12 12:15 | ED.GENADULT ---
HPI - General Adult General Chief complaint: Chest Pain Stated complaint: left chest discomfort Time Seen by Provider: 05/12/22 11:54 History of Present Illness HPI narrative: 67-year-old male with history of hypertension, high cholesterol and borderline diabetes presenting to the emergency department for evaluation of left-sided chest pain. Patient states he has been having issues with his blood pressure lately and recently had his losartan increased from 50 mg daily to 100 mg daily. Patient states yesterday after mowing his yard he had onset of left-sided chest pain. Patient describes it as a discomfort that does not radiate to his neck back or arm. Patient has no prior history of [place]. Patient did have a stress test in September 2020 and the stress test was negative. Patient states after mowing the yard and during the episode of chest pain he did have some diaphoresis. Patient denies any current shortness of breath. Patient denies any current nausea or vomiting. Patient denies any abdominal pain. Related Data Home Medications Medication Instructions Recorded Confirmed multivitamin 1 tablet PO DAILY 09/29/19 05/12/22 polyethylene glycol 3350 17 gram 17 g PO DAILY 01/30/21 05/12/22 oral powder packet (Miralax) montelukast 10 mg tablet 10 mg PO QACLUNCH 05/12/22 05/12/22 (Singulair) tramadol 50 mg tablet 50 mg PO TID 05/12/22 05/12/22 Allergies Allergy/AdvReac Type Severity Reaction Status Date / Time codeine AdvReac Mild Nausea Verified 05/12/22 10:05 Review of Systems Review of Systems: CONSTITUTIONAL: Denies fever, chills, or sweats. EYES: Denies visual changes, redness, or discharge. ENT: Denies rhinorrhea, congestion, sore throat, or otalgia. CARDIOVASCULAR: See HPI RESPIRATORY: Denies cough or dyspnea. GASTROINTESTINAL: Denies abdominal pain, nausea, vomiting, or diarrhea. GENITOURINARY: Denies dysuria or hematuria. SKIN: Denies rash or itching. MUSCULOSKELETAL: Denies back pain, joint pain, or myalgia. NEUROLOGIC: Denies headache, numbness, or weakness. [facility] Past Medical History Medical History (Updated 05/12/22 @ 19:18 by Santy Hall MD) Allergic rhinitis Body aches Chronic constipation HTN (hypertension) Obesity Pure hypercholesterolemia Surgical History Surgical History History of circumcision History of wisdom tooth extraction Status post Dupuytren's fasciectomy Family History Family History Father Patient's father is in good health Sibling Family history of pancreatic cancer Mother Family history of malignant neoplasm of thyroid Social History Social History (Updated 05/12/22 @ 16:25 by Maddy Cam NP) Social History: The patient is and has 2 children. He is retired from [employer]. He occasionally drinks a beer. He denies any marijuana or illicit drugs. The patient stated that his 2 boys are his durable power banking attorney for healthcare. Code status full code Smoking status: Never smoker Second hand tobacco smoke exposure: Yes Alcohol intake: never Drinks per week: 2 Alcohol use details: socially Substance use: never Substance use type: does not use Gender identity (if verbalized by the patient): Male Spiritual care concerns: No Exam Narrative: APPEARANCE: Well appearing, no pain, no distress, well-nourished. HEAD: normocephalic, atraumatic. EYES: PERRLA/EOMI, conjunctivae clear. NOSE: Normal no drainage NECK: Supple. No adenopathy, no masses. RESPIRATORY: Airway patent, respirations nonlabored. Clear to auscultation bilaterally, no rales, rhonchi, wheezing. CARDIOVASCULAR: Regular rate and rhythm without murmurs rubs or gallops. ABDOMINAL: Soft, nontender, nondistended, normal bowel sounds MUSCULOSKELETAL: Moves all extremities. Strength/ROM intact, No edema, No calf tenderness. NEURO: Alert. Cranial ne
[2022-05-12] MEDS: ASPIRIN 81 MG CHEWABLE TABLET 324 MG PO (12:33)
[2022-05-12] MEDS: NITROGLYCERIN SL 0.4 MG TABLET SUBLINGUAL (12:33)
--- NOTE | 2022-05-12 12:42 | PC.NURSE ---
Patient reports feeling lightheaded after nitro SL tablet. EDP Rafael notified.
--- NOTE | 2022-05-12 12:47 | PC.NURSE ---
EDP Rafael notified of patient's blood pressure following nitro administration. Patient's head of bed lowered and IV fluids ordered,
[2022-05-12] MEDS: SODIUM CHLORIDE 0.9% IV 1,000 ML 999 ML IV CONT (12:49)
[2022-05-12 14:31] LABS: Troponin I < 0.012 ng/mL (0.000-0.034)
--- NOTE | 2022-05-12 14:55 | PM.IMHP ---
H&P: HPI History of Present Illness Date/Time: 05/12/22 14:56 Chief Complaint: Chest pain Narrative: This is a 67-year-old male patient has a history of hypertension, hyper cholesterol and diabetes. The patient told me that he took approximately 15 minutes to cut grass yesterday but did okay with that but then later on that night he this left-sided chest pain that did not radiate down his arm or up his neck. The patient denied any nausea vomiting. No diaphoresis. The patient stated that his blood pressures been higher than usual and he recently had his losartan increased by his primary care doctor. The patient stated he has been monitoring his blood pressure at home and his blood pressure is elevated last night. The patient tells me that he went to the urgent care this morning because his blood pressure remained elevated and he discussed having the chest pain last night. The patient currently does not have any chest pain. The patient stated that he had an EKG at the urgent care and it was normal there. The urgent care sent him to the emergency room here to be evaluated. Troponins are negative x2. The patient stated that he did take his blood pressure medicine this morning after eating breakfast. His blood pressure here is 131/73 and his heart rate is up to 105. He is afebrile. EKG was read as sinus rhythm nonspecific T-wave abnormality. Chest x-ray was read as no acute cardiopulmonary abnormality. The patient was given an aspirin with sublingual nitro and IV fluids. Cardiology has been consulted. The patient is being admitted to observation status on the date of service of 05/12/2022. The patient has seen Dr. Dudley in the past with his mild chest discomfort.(he was admitted overnight on 09/27/2020 where he had a stress test and was found to be negative. The patient was given aspirin and Toradol at that time and relieved his discomfort. He was ruled out for myocardial infarction at that time.) Review of Systems Review of Systems: See HPI All systems reviewed & are unremarkable except as noted in HPI and below Constitutional: Constitutional: Reports as per HPI and Reports no additional constitutional complaints Eyes: Eyes: Reports as per HPI and Reports no additional eye complaints ENT: Reports system reviewed and no additional complaints, except as documented and Reports Normal hearing present Cardiovascular: Cardiovascular: Reports no additional cardiovascular complaints Respiratory: Respiratory: Reports no additional respiratory complaints and Reports no additional respiratory complaints Gastrointestinal: Gastrointestinal: Reports as per HPI and Reports no additional gastrointestinal complaints Musculoskeletal: Musculoskeletal: Reports no additional musculoskeletal complaints Integumentary/Breasts: Skin/Breast: Reports system reviewed and no additional complaints, except as docu and Reports as per HPI Neurologic: Reports system reviewed and no additional complaints, except as documented, Reports as per HPI and Reports Normal hearing present Psychiatric: Psychiatric: Reports no additional psychiatric complaints and Reports as per HPI Endocrine: Endocrine: Reports no additional endocrine complaints Hematologic/Lymphatic: Hematologic/Lymphatic: Reports no additional hematologic/lymphatic complaints Allergic/Immunologic: Allergic/Immunologic: Reports no additional allergic/immunologic complaints [facility] Past Medical History Medical History (Updated 05/12/22 @ 14:57 by Maddy Cam NP) Allergic rhinitis Body aches Chronic constipation HTN (hypertension) Obesity Pure hypercholesterolemia Surgical History Surgical History History of circumcision History of wisdom tooth extraction Status post Dupuytren's fasciectomy Family History Family History Father Patient's father is in good health Sibl
--- NOTE | 2022-05-12 15:10 | ADMGEN ---
This patient, Ollie Anderson, was admitted to IMU Room 203-01 @ 1506. Patient/family oriented to hospital policies and general routines including ID bracelet, bed and alarms, visiting hours, pain management, procedures, bathroom and other care routines, personal items, smoking policy, room service/diet, and visiting hours. Information on how to activate the Rapid Response Team has been discussed. Patient/Family are encouraged to report perceived risks to care and to ask questions if they do not understand what they are told or what they should do.
[2022-05-12 17:19] LABS: Troponin I < 0.012 ng/mL (0.000-0.034)
[2022-05-12] MEDS: ACETAMINOPHEN 325 MG TABLET 650 MG PO (17:34)
[2022-05-12] MEDS: traMADol HCL (*CRX) 50 MG TABLET PO (17:34)
[2022-05-13] VITALS (10 sets, daily range): BP systolic 143–154; BP diastolic 74–91; PULSE 57–94; RESP 16–20; TEMP 36.2–36.5; O2SAT 18–100
--- NOTE | 2022-05-13 00:11 | PC.NURSE ---
Assumed care of the patient at this time. Report received from Tahira Overton RN.
[2022-05-13 04:55] LABS: Basophils Percent Auto 0.5 % (0.2-1.2); Eosinophils Absolute Auto 0.1 K/mm3 (0-0.3); Eosinophils Percent Auto 1.7 % (0-4.4); Hematocrit 41.9 % (42.0-52.0); Hemoglobin 14.1 g/dL (14.0-18.0); Immature Granulocyte Absolute 0.03 K/mm3 (0.00-0.031); Immature Granulocyte Percent A 0.4 % (0-0.5); Lymphocytes Absolute Auto 1.75 K/mm3 (0.9-3.2); Lymphocytes Percent Auto 23.1 % (18.3-44.2); Mean Corpuscular HGB Conc 33.7 g/dl (32-36); Mean Corpuscular Hemoglobin 30.9 pg (26-34); Mean Corpuscular Volume 91.7 fl (80-100); Mean Platelet Volume 9.3 fl (7.4-10.4); Monocytes Percent Auto 13.4 % (2.6-8.5); Neutrophils Absolute Auto 4.6 K/mm3 (1.3-6.7); Neutrophils Percent Auto 60.9 % (45.5-73.1); Platelet Count Result 265 k/mm3 (150-375); Red Blood Count 4.57 M/mm3 (4.6-6.20); Red Cell Distribution Width 12.6 % (11.5-14.5); White Blood Count 7.6 K/mm3 (4.5-10.0)
[2022-05-13 05:06] LABS: Alanine Aminotransferase 24 U/L (6-50); Albumin Level 3.9 g/dL (3.5-5.1); Alkaline Phosphatase 71 U/L (38-126); Anion Gap 11 mmol/L (8-16); Aspartate Amino Transferase 23 U/L (17-59); Blood Urea Nitrogen 15 mg/dL (9-20); CRP < 0.5 mg/dL (<1.0); Calcium 9.2 mg/dL (8.4-10.2); Carbon Dioxide 25 mmol/L (22-30); Chloride 102 mmol/L (98-107); Cholesterol 206 mg/dL (0-200); Estimated CRCL calculation 102 ml/min; Estimated Glomerular Filt Rate > 60; Glucose 128 mg/dL (65-110); HDL Direct 47 mg/dL; Magnesium 2.1 mg/dL (1.6-2.3); Potassium 3.9 mmol/L (3.4-5.0); Sodium 138 mmol/L (137-145); Triglycerides 96 mg/dL (<150)
[2022-05-13 05:07] LABS: Lactic Acid Reflex 1.2 mmol/L (0.7-2.0)
[2022-05-13 05:15] LABS: LDL Cholesterol Direct 110 mg/dL
[2022-05-13] MEDS: ASPIRIN 81 MG CHEWABLE TABLET PO (11:25)
[2022-05-13] MEDS: MULTIVITAMINS THERAPEUTIC TAB (*BKC) 1 TABLET PO (11:26)
[2022-05-13] MEDS: LOSARTAN POTASSIUM 100 MG TABLET PO (11:26)
[2022-05-13] MEDS: traMADol HCL (*CRX) 50 MG TABLET PO (11:26)
--- NOTE | 2022-05-13 11:47 | PM.IMPN ---
Progress Note: A&P Assessment and Plan (1) Chest pain: Qualifiers: Chest pain type: unspecified Qualified Code(s): R07.9 - Chest pain, unspecified Code(s): R07.9 - Chest pain, unspecified Status: Inactive Assessment and Plan: -troponins negative x3. -cardiology has been consulted. -the patient's last stress test was reported as 10/09/2020 which was read as no diagnostic. Left ventricular ejection fraction is 73% myocardial perfusion imaging is normal. -he has seen Dr. Dudley in the past. -he may have a heart healthy diet tonight and then NPO after midnight for possible stress test. Await Cardiology evaluation EKG with no new changes nonspecific ST-T changes noted Chest x-ray with no acute cardiopulmonary abnormality (2) HTN (hypertension): Qualifiers: Hypertension type: unspecified Qualified Code(s): I10 - Essential (primary) hypertension Code(s): I10 - Essential (primary) hypertension Status: Acute Assessment and Plan: -continue with losartan -the patient recently purchased a blood pressure cuff and has been monitoring at home. -patient continues to have high readings at home as well. Today his blood pressure has normalized. -continue with heart healthy diet for tonight. -we discussed the importance diet and exercise. Discussed 2 g sodium diet at home. (3) Chronic constipation: Code(s): K59.09 - Other constipation Status: Acute Assessment and Plan: -continue with MiraLax (4) Dyslipidemia: Code(s): E78.5 - Hyperlipidemia, unspecified Status: Acute Assessment and Plan: -patient no longer takes any medication for hyperlipidemia. Lipids 206/47/110/96 Subjective Date/time seen: 05/13/22 11:47 Interval history: HPI: This is a 67-year-old male patient has a history of hypertension, hyper cholesterol and diabetes.? The patient told me that he took approximately 15 minutes to cut grass yesterday but did okay with that but then later on that night he? this left-sided chest pain that did not radiate down his arm or up his neck.? The patient denied any nausea vomiting.? No diaphoresis.? The patient stated that his blood pressures been higher than usual and he recently had his losartan increased by his primary care doctor.? The patient stated he has been monitoring his blood pressure at home and his blood pressure is elevated last night.? The patient tells me that he went to the urgent care this morning because his blood pressure remained elevated and he discussed having the chest pain last night.? The patient currently does not have any chest pain.? The patient stated that he had an EKG at the urgent care and it was normal there.? The urgent care sent him to the emergency room here to be evaluated.? Troponins are negative x2.? The patient stated that he did take his blood pressure medicine this morning after eating breakfast.? His blood pressure here is 131/73 and his heart rate is up to 105.? He is afebrile.? EKG was read as sinus rhythm nonspecific T-wave abnormality.? Chest x-ray was read as no acute cardiopulmonary abnormality.? The patient was given an aspirin with sublingual nitro and IV fluids.? Cardiology has been consulted.? The patient is being admitted to observation status on the date of service of 05/12/2022. ? The patient has seen Dr. Dudley in the past with his mild chest discomfort.(he was admitted overnight on 09/27/2020 where he had a stress test and was found to be negative.? The patient was given aspirin and Toradol at that time and relieved his discomfort.? He was ruled out for myocardial infarction at that time.) 05/13/2022: Review of Systems Review of Systems: All systems reviewed & are unremarkable except as noted in HPI and below Exam Narrative: GENERAL: The patient is well developed, not in acute distress HEENT: Nonicteric sclerae, PERRLA, EOMI. Oropharynx clear. Moist mucous membranes. Conjunctivae appear well
--- NOTE | 2022-05-13 12:57 | PM.CNCAR ---
Assessment and Plan Assessment and plan (1) Chest pain: Code(s): R07.9 - Chest pain, unspecified Status: Acute Plan This is a 67-year-old patient with longstanding hypertension who had some chest discomfort over the weekend that was atypical of angina. The discomfort did not occur during exercise, mowing his lawn it occurred several hours later was self-limited. His electrocardiogram is normal and is biomarkers show no evidence of an acute coronary syndrome. He did have a nuclear stress test done last year for evaluation of this which was a negative exam. At this time and for those reasons I do not believe a ischemia workup needs to be repeated at this time. He can be discharged and his PCP will continue to evaluate and treat and adjust medications for his hypertension as deemed appropriate Haider Bender MD [facility] History of Present Illness History of Present Illness Consult date/time: 05/13/22 12:57 Consult reason: chest pain Reason For Visit: Chest Pain Narrative: This is a 67-year-old man who is unknown to me prior to this consultation I am seeing at the request of the hospice because of some chest pain that prompted emergency room visit and admission to the hospital you yesterday. Patient is not known to have any cardiac problems before this. He states that over the weekend he was mowing his grass. While he was mowing his grass he had no symptoms at all and felt well. He has a relatively small lawn and the whole job takes him about 20 minutes. Later in the day about 3 hours later he noticed some sense of dull aching in the left precordium that lasted for about 30 minutes and then subsided. He does have a history of hypertension and he has been concerned that his blood pressure has not been well controlled he was taking his blood pressure several times the that day and again yesterday and recorded some brought blood pressure readings that were high in this range of 170-180 systolic. For that reason he went to the urgent care center and because they obtained a history of some chest pain the previous day they sent him to the emergency room for evaluation. In the emergency department his electrocardiograms look normal his biomarkers were normal and he was admitted to the hospital for evaluation. Since being in IMU he has not had any additional symptoms he feels well today. The patient was seen by my partner, Dr. Dudley last year in consultation for episodes of chest discomfort a nuclear stress test was done in our office as an outpatient which was a normal exam. Other than hypertension he does not have any significant coronary risk factors. Review of Systems Constitutional: Constitutional: Reports no additional constitutional complaints Eyes: Eyes: Reports no additional eye complaints ENT: Reports system reviewed and no additional complaints, except as documented Cardiovascular: Cardiovascular: Reports as per HPI Respiratory: Respiratory: Reports no additional respiratory complaints Gastrointestinal: Gastrointestinal: Reports no additional gastrointestinal complaints Musculoskeletal: Musculoskeletal: Reports no additional musculoskeletal complaints Integumentary/Breasts: Skin/Breast: Reports system reviewed and no additional complaints, except as docu Neurologic: Reports system reviewed and no additional complaints, except as documented Endocrine: Endocrine: Reports no additional endocrine complaints Hematologic/Lymphatic: Hematologic/Lymphatic: Reports no additional hematologic/lymphatic complaints Allergic/Immunologic: Allergic/Immunologic: Reports no additional allergic/immunologic complaints [facility] Past Medical History Medical History (Updated 05/13/22 @ 00:00 by Ne White) Allergic rhinitis Body aches Chronic constipation HTN (hypertension) Obesity Pure hypercholesterolemia Surgical History Surgical History History of circumc
--- NOTE | 2022-05-13 14:35 | PM.DS ---
DS: Admitting Diagnosis Discharge Date 05/13/2022 Admitting Diagnosis chest pain DS: Discharge Diagnosis Discharge Diagnosis (1) Chest pain: Qualifiers: Chest pain type: unspecified Qualified Code(s): R07.9 - Chest pain, unspecified Code(s): R07.9 - Chest pain, unspecified Status: Inactive (2) HTN (hypertension): Qualifiers: Hypertension type: unspecified Qualified Code(s): I10 - Essential (primary) hypertension Code(s): I10 - Essential (primary) hypertension Status: Acute (3) Chronic constipation: Code(s): K59.09 - Other constipation Status: Acute (4) Dyslipidemia: Code(s): E78.5 - Hyperlipidemia, unspecified Status: Acute DS: Summary Hospital Course Reason for hospitalization: This is a 67-year-old male patient has a history of hypertension, hyper cholesterol and diabetes.? The patient told me that he took approximately 15 minutes to cut grass yesterday but did okay with that but then later on that night he? this left-sided chest pain that did not radiate down his arm or up his neck.? The patient denied any nausea vomiting.? No diaphoresis.? The patient stated that his blood pressures been higher than usual and he recently had his losartan increased by his primary care doctor.? The patient stated he has been monitoring his blood pressure at home and his blood pressure is elevated last night.? The patient tells me that he went to the urgent care this morning because his blood pressure remained elevated and he discussed having the chest pain last night.? The patient currently does not have any chest pain.? The patient stated that he had an EKG at the urgent care and it was normal there.? The urgent care sent him to the emergency room here to be evaluated.? Troponins are negative x2.? The patient stated that he did take his blood pressure medicine this morning after eating breakfast.? His blood pressure here is 131/73 and his heart rate is up to 105.? He is afebrile.? EKG was read as sinus rhythm nonspecific T-wave abnormality.? Chest x-ray was read as no acute cardiopulmonary abnormality.? The patient was given an aspirin with sublingual nitro and IV fluids.? Cardiology has been consulted.? The patient is being admitted to observation status on the date of service of 05/12/2022. ? The patient has seen Dr. Dudley in the past with his mild chest discomfort.(he was admitted overnight on 09/27/2020 where he had a stress test and was found to be negative.? The patient was given aspirin and Toradol at that time and relieved his discomfort.? He was ruled out for myocardial infarction at that time.) Hospital Course: # chest pain troponin was done which was negative x3. Cardiology was consulted. He had last stress test on 10/09/2020 which was negative. LVEF 73% myocardial perfusion imaging was normal. He had seen Dr. Dudley in the past. EKG with nonspecific ST-T changes. Chest x-ray with no acute cardiopulmonary abnormality. Cardiology evaluated the patient. Hypertension management and follow-up with PCP suggested. No ischemic workup needed. # hypertension on losartan recently blood pressure has been high. Suggested 2 g sodium diet and exercise. Follow-up with PCP for further titration of medication # chronic constipation MiraLax # dyslipidemia lipid profile 206/47/110/96. # DVT prophylaxis SCD # code status full code Time Spent with Patient Time attestation: Total time spent providing and/or coordinating discharge services: 45 minutes Exam Narrative: GENERAL: The patient is well developed, not in acute distress HEENT: Nonicteric sclerae, PERRLA, EOMI. Oropharynx clear. Moist mucous membranes. Conjunctivae appear well perfused. CHEST: Chest wall is nontender. HEART: Regular rate and rhythm without murmur, rubs, or gallops LUNGS: Clear to auscultation bilaterally. no respiratory distress ABDOMEN: Soft, positive bowel sounds, non-tender, no organomegaly.
== END 2022-05-13 15:35 | disposition home or self-care (01) ==
LOC: ANHED 12:16 → ANHIMU 14:27
PROVIDERS: Emergency Medicine; Nurse Practitioner; Admitting Provider Internal Medicine; Emergency Provider Emergency Medicine; PCP Family Medicine; Visit Provider Internal Medicine
DX: R07.9 Chest pain, unspecified (principal); I10 Essential (primary) hypertension; K59.09 Other constipation; E78.5 Hyperlipidemia, unspecified; E11.9 Type 2 diabetes mellitus without complications; E78.00 Pure hypercholesterolemia, unspecified; E66.9 Obesity, unspecified; Z68.34 Body mass index [BMI] 34.0-34.9, adult; R94.31 Abnormal electrocardiogram [ECG] [EKG]; Z77.22 Contact with and (suspected) exposure to environmental tobacco smoke (acute) (chronic); Z79.899 Other long term (current) drug therapy
CPT/HCPCS: 36415; 71046; 80053; 80061; 83605; 83690; 83735; 84443; 84484; 85025; 85610; 85730; 86140; 93005; 99213; 99285; A9270; G0378; G0463; J7030

== ENCOUNTER 2022-07-05 11:07 | Emergency (ER) | payer MEDICARE, SELFPAY ==
[2022-07-05] VITALS (13 sets, daily range): BP systolic 133–164; BP diastolic 84–95; PULSE 91–102; RESP 16–20; TEMP 36.7; O2SAT 94–100
--- NOTE | ~2022-07-05 | XR_ITS ---
EXAMINATION: XR chest 2V DATE: 07/05/2022 12:24 INDICATION: Chest pain TECHNIQUE: PA and lateral views of the chest are obtained. COMPARISON: 05/12/2022 FINDINGS: The lungs are free of acute opacities. No pleural effusion or pneumothorax. The cardiomedia stinal silhouette is normal. A chronic lower thoracic compression fracture is noted and unchanged. IMPRESSION: 1. No acute cardiopulmonary abnormality. Reviewed, dictated and finalized at location B.
--- NOTE | 2022-07-05 11:55 | ECG_ITS ---
Measurements Intervals [place] Rate: 93 P: 12 NC: 187 QRS: -21 QRSD: 80 T: -9 QT: 328 QTc: 410 Interpretive Statements SINUS RHYTHM PROBABLE INFERIOR MYOCARDIAL INFARCTION , PROBABLY OLD [35 ms Q WAVE IN II/aVF] COMPARED TO ECG 05/12/2022 10:56:49 LIKELY DIFFERENT LEAD POSITION AVF OTHERWISE NO DIFFERENCE Electronically Signed On 07-05-2022 14:11:14 CDT by Haider Bender M.D.
[2022-07-05 12:18] LABS: Basophils Absolute Auto 0.1 K/mm3 (0.0-0.1); Basophils Percent Auto 0.6 % (0.2-1.2); Eosinophils Percent Auto 0.4 % (0-4.4); Hematocrit 45.9 % (42.0-52.0); Hemoglobin 15.9 g/dL (14.0-18.0); Immature Granulocyte Absolute 0.07 K/mm3 (0.00-0.031); Immature Granulocyte Percent A 0.7 % (0-0.5); Lymphocytes Absolute Auto 1.59 K/mm3 (0.9-3.2); Lymphocytes Percent Auto 15.9 % (18.3-44.2); Mean Corpuscular HGB Conc 34.6 g/dl (32-36); Mean Corpuscular Hemoglobin 31.4 pg (26-34); Mean Corpuscular Volume 90.7 fl (80-100); Mean Platelet Volume 8.9 fl (7.4-10.4); Monocytes Absolute Auto 1.1 K/mm3 (0.1-0.6); Neutrophils Absolute Auto 7.2 K/mm3 (1.3-6.7); Neutrophils Percent Auto 71.4 % (45.5-73.1); Platelet Count Result 358 k/mm3 (150-375); Red Blood Count 5.06 M/mm3 (4.6-6.20); Red Cell Distribution Width 12.5 % (11.5-14.5)
[2022-07-05 12:23] LABS: INR 1.1; Partial Thromboplastin Time 22.9 SECONDS (22.3-36.8); Prothrombin Time 14.2 Seconds (11.1-14.7)
[2022-07-05 12:30] LABS: Alanine Aminotransferase 37 U/L (6-50); Albumin Level 4.4 g/dL (3.5-5.1); Alkaline Phosphatase 85 U/L (38-126); Anion Gap 15 mmol/L (8-16); Aspartate Amino Transferase 25 U/L (17-59); Bilirubin,Total 1.1 mg/dL (0.2-1.3); Blood Urea Nitrogen 12 mg/dL (9-20); Calcium 9.5 mg/dL (8.4-10.2); Carbon Dioxide 23 mmol/L (22-30); Chloride 99 mmol/L (98-107); Estimated CRCL calculation 129 ml/min; Estimated Glomerular Filt Rate > 60; Glucose 148 mg/dL (65-110); Potassium 3.6 mmol/L (3.4-5.0); Sodium 137 mmol/L (137-145)
--- NOTE | 2022-07-05 12:33 | ED.RECABL ---
HPI - Recheck/Abnormal Lab/Rx General Chief Complaint: Recheck/Abnormal Lab/Rx Stated Complaint: Blood pressure issues Time Seen by Provider: 07/05/22 11:43 History of Present Illness HPI narrative: Patient is a 67-year-old male who presents ER with concerns for elevated blood pressure. Blood pressure this morning was in the 180s systolic. He had taken his amlodipine and his losartan. His blood pressures been running high recently and his doctor increased his amlodipine. Patient reports last week he had a cold and was prescribed azithromycin as well as a Medrol Dosepak. He did not realize that a Medrol Dosepak could cause issues with blood pressure. He also does report that he is feeling little foggy or off in the head. He has some central chest pressure that has been going on for 2 days. Reports he was hospitalized for chest discomfort couple months ago and it was not felt that he needed a stress test or any additional work-up by cardiology. Related Data Home Medications Medication Instructions Recorded Confirmed multivitamin 1 tablet PO DAILY 09/29/19 06/28/22 polyethylene glycol 3350 17 gram 17 g PO DAILY 01/30/21 06/28/22 oral powder packet (Miralax) Allergies Allergy/AdvReac Type Severity Reaction Status Date / Time codeine AdvReac Mild Nausea Verified 07/05/22 11:08 Review of Systems Review of Systems: All systems reviewed & are unremarkable except as noted in HPI and below Constitutional: Constitutional: Denies chills, Denies fever(s) and Reports weakness ENT: Denies nasal congestion and Denies sore throat Cardiovascular: Cardiovascular: Reports chest pain, Denies rapid heart rate and Denies radiating jaw, neck or arm pain Respiratory: Respiratory: Denies cough and Denies dyspnea Gastrointestinal: Gastrointestinal: Denies abdominal pain, Denies nausea and Denies vomiting Neurologic: Denies headache(s), Denies focal weakness and Denies numbness PMFSH Past Medical History Medical History Allergic rhinitis Body aches Chronic constipation HTN (hypertension) Obesity Pure hypercholesterolemia Surgical History Surgical History History of circumcision History of wisdom tooth extraction Status post Dupuytren's fasciectomy Family History Family History Father Patient's father is in good health Sibling Family history of pancreatic cancer Mother Family history of malignant neoplasm of thyroid Social History Social History Social History: The patient is and has 2 children. He is retired from [employer]. He occasionally drinks a beer. He denies any marijuana or illicit drugs. The patient stated that his 2 boys are his durable power state's attorney for healthcare. Code status full code Smoking status: Never smoker Second hand tobacco smoke exposure: Yes Alcohol intake: never Drinks per week: 2 Alcohol use details: socially Substance use: never Substance use type: does not use Gender identity (if verbalized by the patient): Male Spiritual care concerns: No Exam Narrative: GENERAL: Well-appearing, well-nourished, and in no acute distress. HEAD: Normocephalic, atraumatic. EYES: PERRL and EOMI. ENT: Mucous membranes moist. CHEST: Clear to auscultation. No respiratory distress. HEART: Regular rate and rhythm. Normal peripheral pulses. ABDOMEN: Soft, nontender, nondistended. EXTREMITIES: Normal range of motion. No edema. SKIN: Warm, dry, no rash. NEURO: Alert and oriented x3. PSYCH: Normal mood and affect. Course Course Emergency Course: Patient resting comfortably. Blood pressure improving on its own. Labs unremarkable. Discharge home. Vital Signs Vital signs: Vital Signs Respiratory Rate 16 07/05/22 11:14
[2022-07-05 14:03] LABS: Troponin I < 0.012 ng/mL (0.000-0.034)
== END 2022-07-05 14:56 | disposition home or self-care (01) ==
PROVIDERS: Emergency Provider Emergency Medicine; PCP Family Medicine
DX: I10 Essential (primary) hypertension (principal); R07.89 Other chest pain; E78.00 Pure hypercholesterolemia, unspecified; E66.9 Obesity, unspecified; Z68.34 Body mass index [BMI] 34.0-34.9, adult
CPT/HCPCS: 36415; 71046; 80053; 84484; 85025; 85610; 85730; 93005; 99284

== ENCOUNTER 2022-09-10 01:58 | Emergency (ER) | payer MEDICARE, SELFPAY ==
[2022-09-10 02:02] VITALS: BP 170/98; PULSE 80; RESP 22; TEMP 36; O2SAT 97
--- NOTE | 2022-09-10 03:07 | ED.BACK ---
HPI - Back Pain/Injury General Chief Complaint: Back Pain/Injury Stated Complaint: old T11 compression fx, back pain Time Seen by Provider: 09/10/22 02:49 History of Present Illness HPI Narrative: This is a 67-year-old male past medical history of T11 fracture and chronic back pain, hypertension, hyperlipidemia, presents emergency department complaining of back pain. He states he was shoveling snow earlier today then sat for a long period (this apparently aggravates his pain). He describes the pain as sharp, similar to prior exacerbations, though worse than usual, rated 6 out of 10. The pain radiates around towards his abdomen. He has no other complaints; he denies bowel/bladder incontinence, saddle anesthesia, dysuria or hematuria. Related Data Home Medications Medication Instructions Recorded Confirmed multivitamin 1 tablet PO DAILY 09/29/19 07/09/22 polyethylene glycol 3350 17 gram 17 g PO DAILY 01/30/21 07/09/22 oral powder packet (Miralax) Allergies Allergy/AdvReac Type Severity Reaction Status Date / Time codeine AdvReac Mild Nausea Verified 09/10/22 02:16 Review of Systems Review of Systems: CONSTITUTIONAL: Denies fever, chills, or sweats. EYES: Denies visual changes, redness, or discharge. CARDIOVASCULAR: Denies chest pain, palpitations, or edema. RESPIRATORY: Denies cough or dyspnea. GASTROINTESTINAL: Denies abdominal pain, nausea, vomiting, or diarrhea. GENITOURINARY: Denies dysuria or hematuria. SKIN: Denies rash or itching. MUSCULOSKELETAL: Back pain denies joint pain, or myalgia. NEUROLOGIC: Denies headache, numbness, dizziness, or weakness. PSYCHIATRIC: Denies anxiety or depression. [facility] Past Medical History Medical History (Updated 09/10/22 @ 03:12 by Kodi Pyle MD) Allergic rhinitis Body aches Chronic constipation HTN (hypertension) Obesity Pure hypercholesterolemia Thoracic spine fracture Surgical History Surgical History History of circumcision History of wisdom tooth extraction Status post Dupuytren's fasciectomy Family History Family History Father Patient's father is in good health Sibling Family history of pancreatic cancer Mother Family history of malignant neoplasm of thyroid Social History Social History Social History: The patient is and has 2 children. He is retired from [employer]. He occasionally drinks a beer. He denies any marijuana or illicit drugs. The patient stated that his 2 boys are his durable power contract attorney for healthcare. Code status full code Smoking status: Never smoker Second hand tobacco smoke exposure: Yes Alcohol intake: never Drinks per week: 2 Alcohol use details: socially Substance use: never Substance use type: does not use Gender identity (if verbalized by the patient): Male Spiritual care concerns: No Exam Narrative: GENERAL: Well-developed, well-nourished, appears uncomfortable HEAD: Normocephalic, atraumatic. EYES: PERRLA and EOMI. ENT: Nares clear, no rhinorrhea or epistaxis. Mucous membranes moist. Oropharynx without tonsillar hypertrophy exudate or other lesions. NECK: Supple. No adenopathy or masses. No carotid bruits or JVD CHEST: Clear to auscultation. No respiratory distress. No wheezes rales or rhonchi HEART: Regular rate and rhythm. No murmur heard. Normal peripheral pulses. ABDOMEN: Soft, nontender, nondistended, normal active bowel sounds. BACK: No midline spine tenderness to palpation, no paraspinal tenderness palpation, muscle spasm noted on the right from approximately T5-T12 EXTREMITIES: Normal range of motion. No edema. SKIN: Warm, dry, no rash. NEURO: No focal deficits. Alert and oriented x3. Strength 5 of 5 in all extremities, sensation intact, patient seen ambulating with a slightly
[2022-09-10] MEDS: CYCLOBENZAPRINE HCL 5 MG TABLET PO (03:20)
[2022-09-10] MEDS: ACETAMINOPHEN 500 MG TABLET 1000 MG PO (03:20)
[2022-09-10] MEDS: LIDOCAINE 5% PATCH 1 PATCH TRANSDERM (03:20)
--- NOTE | 2022-09-10 04:16 | PC.NURSE ---
Pt refused urine collection, wants to go home and sleep
== END 2022-09-10 04:20 | disposition home or self-care (01) ==
PROVIDERS: Emergency Provider Preventive Medicine Aerospace Medicine; PCP Family Medicine
DX: M54.9 Dorsalgia, unspecified (principal); G89.29 Other chronic pain; I10 Essential (primary) hypertension; E78.5 Hyperlipidemia, unspecified
CPT/HCPCS: 99283; A9270

== ENCOUNTER 2022-09-10 07:23 | Observation (INO) | payer MEDICARE, SELFPAY ==
[2022-09-10] VITALS (22 sets, daily range): BP systolic 106–161; BP diastolic 67–88; PULSE 69–102; RESP 14–20; TEMP 36.2–36.6; O2SAT 94–100; BMI 34.7
--- NOTE | ~2022-09-10 | XR_ITS ---
EXAMINATION: XR cholangiogram surg 1st inj DATE: 09/11/2022 16:01 INDICATION: Cholelithiasis and acute cholecystitis. TECHNIQUE: Multiple fluoroscopic images of the right upper quadrant were obtained during intraoperati ve cholangiography. A total of 118 fluoroscopic images were obtained. The amount of fluoroscopy time used during this procedure was 0.3 minutes. COMPARISON: None. FINDINGS: There are few cholecystectomy clips at the site of cannulation of the cystic duct. Contrast injection demonstrates filling of normal-appearing cystic and common bile ducts, the latter which tapers donald hly distally with no intraluminal filling defects or stricture. Contrast extends into the duodenum a nd central intrahepatic biliary tree which also appears normal. IMPRESSION: 1. No filling defects or strictures within the common bile duct or contrast opacified central biliary tree. Reviewed, dictated and finalized at location A. TRUING MACHINE OPERATOR IMPRESSION: 1. No filling defects or strictures within the common bile duct or contrast opa cified central biliary tree.
--- NOTE | ~2022-09-10 | US_ITS ---
EXAMINATION: US abdomen limited DATE: 09/10/2022 10:10 INDICATION: Right upper quadrant pain TECHNIQUE: Multiple grayscale and Doppler ultrasound images of the abdomen were obtained. COMPARISON: CT from today FINDINGS: Bowel gas obscures visualization of the pancreas. The visualized portions of the liver are normal. No surface nodularity. Normal hepatopetal flow in the main portal vein. A stone is present in the gallbladder which is mildly distended. There is minimal thickening of the gallbladder. The commo n bile duct is obscured by bowel gas. There was no sonographic Wright sign although the patient is on pain medication which limits sensitivity. IMPRESSION: 1. Cholelithiasis with gallbladder wall thickening and mild gallbladder distention, findings are cons istent with acute cholecystitis. Reviewed, dictated and finalized at location L. K DRIVER HEAVY IMPRESSION: 1. Cholelithiasis with gallbladder wall thickening and mild gallbladder distent ion, findings are consistent with acute cholecystitis.
--- NOTE | ~2022-09-10 | XR_ITS ---
EXAMINATION: XR chest 1V portable INDICATION: Right upper quadrant pain TECHNIQUE: Portable AP chest at 1040 hours COMPARISON: 07/05/2022 FINDINGS: The lungs are free of acute opacities. No pleural effusion or pneumothorax. The cardiomedia stinal silhouette is normal. The visualized bones and soft tissues are unremarkable. IMPRESSION: 1. No acute cardiopulmonary abnormality. Reviewed, dictated and finalized at location L. RGLASS AUTOBODY REPAIRER
--- NOTE | ~2022-09-10 | CT_ITS ---
EXAMINATION: CT abdomen pelvis w con INDICATION: Right upper quadrant pain TECHNIQUE: Computed tomographic images of the abdomen and pelvis were obtained after the administrati on of 100 cc of Omnipaque 350 intravenous contrast. The dose-length product (DLP) was 1481.46 mGy-cm. Automated exposure control and iterative reconstruction technique were employed. COMPARISON: None available FINDINGS: The lung bases are clear. The heart size is normal. There is a 9 mm cyst of the liver. The spleen, pancreas, and adrenal glands are normal. The gallbladder is mildly distended. There appears t o be subtle pericholecystic inflammatory change. The kidneys are unremarkable. No pathologically enla rged abdominal or pelvic lymph nodes are identified. There is no free intraperitoneal gas or evidence of bowel obstruction. The appendix is normal. There is a chronic appearing compression fracture of T 11. There are is asymmetric apparent enlargement of the seminal vesicles on the left of unclear signi ficance. There are lytic lesions of the right iliac wing and left lower ileum with no associated trab ecular or cortical thickening, likely fibrous dysplasia. IMPRESSION: 1. Mildly distended gallbladder with suggestion of subtle pericholecystic inflammatory change. In the setting of right upper quadrant pain, finding could reflect acute cholecystitis. Consider ultrasound for further evaluation. 2. Mild asymmetric enlargement of the left seminal vesicle of unclear significance. Consider nonemerg ent urologic evaluation. Reviewed, dictated and finalized at location L. OR ART DIRECTOR IMPRESSION: 1. Mildly distended gallbladder with suggestion of subtle pericholecystic infla mmatory change. In the setting of right upper quadrant pain, finding could refl ect acute cholecystitis. Consider ultrasound for further evaluation. 2. Mild asymmetric enlargement of the left seminal vesicle of unclear significa nce. Consider nonemergent urologic evaluation.
[2022-09-10 07:49] LABS: Basophils Percent Auto 0.3 % (0.2-1.2); Eosinophils Percent Auto 0.1 % (0-4.4); Hematocrit 43.6 % (42.0-52.0); Immature Granulocyte Absolute 0.03 K/mm3 (0.00-0.031); Immature Granulocyte Percent A 0.2 % (0-0.5); Lymphocytes Absolute Auto 0.97 K/mm3 (0.9-3.2); Lymphocytes Percent Auto 8.1 % (18.3-44.2); Mean Corpuscular HGB Conc 34.4 g/dl (32-36); Mean Corpuscular Hemoglobin 31.1 pg (26-34); Mean Corpuscular Volume 90.3 fl (80-100); Monocytes Absolute Auto 0.9 K/mm3 (0.1-0.6); Monocytes Percent Auto 7.5 % (2.6-8.5); Neutrophils Absolute Auto 10.1 K/mm3 (1.3-6.7); Neutrophils Percent Auto 83.8 % (45.5-73.1); Platelet Count Result 258 k/mm3 (150-375); Red Blood Count 4.83 M/mm3 (4.6-6.20)
[2022-09-10 07:56] LABS: Lactic Acid Reflex 2.4 mmol/L (0.7-2.0)
[2022-09-10 07:57] LABS: Alanine Aminotransferase 27 U/L (6-50); Albumin Level 4.5 g/dL (3.5-5.1); Alkaline Phosphatase 94 U/L (38-126); Anion Gap 8 mmol/L (8-16); Aspartate Amino Transferase 28 U/L (17-59); Bilirubin,Total 0.6 mg/dL (0.2-1.3); Blood Urea Nitrogen 15 mg/dL (9-20); Calcium 9.5 mg/dL (8.4-10.2); Carbon Dioxide 26 mmol/L (22-30); Chloride 97 mmol/L (98-107); Estimated Glomerular Filt Rate > 60; Glucose 145 mg/dL (65-110); Potassium 4.2 mmol/L (3.4-5.0); Sodium 131 mmol/L (137-145)
[2022-09-10] MEDS: SODIUM CHLORIDE 0.9% IV 1,000 ML 150 ML IV CONT (08:01)
--- NOTE | 2022-09-10 08:08 | PC.NURSE ---
Patient off unit to CT.
[2022-09-10] MEDS: MORPHINE SULFATE (*CRX) 4 MG/ML INJ IV PUSH ×2 (08:22→19:56)
[2022-09-10] MEDS: ONDANSETRON INJ 4 MG/2 ML VIAL IV PUSH (08:22)
[2022-09-10 09:19] LABS: Add Urine Microscopic? YES; Appearance Urine Clear (Clear); Bilirubin Urine Negative (Negative); Blood Urine Negative (Negative); Color Urine Light Yellow (Yellow); Glucose Urine UA Negative (Negative); Ketones Urine Trace mg/dL (Negative); Leukocyte Esterase Ur Negative LEU/UL (Negative); Nitrate Urine Negative (Negative); Protein Urine Negative (Negative); Specific Grav Ur 1.015 (1.001-1.035); Urobilinogen Urine 0.2 mg/dL (<2.0)
[2022-09-10 09:25] LABS: Mucus Urine Rare /lpf; RBC Urine 0-2 /hpf (0-2); WBC Urine 0-3 /hpf
--- NOTE | 2022-09-10 10:33 | ECG_ITS ---
Measurements Intervals [place] Rate: 75 P: -4 IA: 186 QRS: -5 QRSD: 98 T: -4 QT: 400 QTc: 447 Interpretive Statements SINUS RHYTHM BASELINE ARTIFACT CANNOT RULE OUT INFERIOR INFARCT AGE INDETERMINATE BORDERLINE ECG COMPARED TO ECG 07/05/2022 12:35:49 NO SIGNIFICANT CHANGES Electronically Signed On 09-10-2022 17:57:34 [employer] by Crescencio Dudley M.D.
[2022-09-10 10:46] LABS: Reflex Lactic Acid Yes or No Add Lactic
[2022-09-10 10:47] LABS: Lipase 33 U/L (23-300)
--- NOTE | 2022-09-10 10:51 | ED.ABDPAIN ---
HPI - Abdominal Pain General Chief Complaint: Abdominal Pain Stated Complaint: RUQ pain Time Seen by Provider: 09/10/22 07:25 Source: patient Mode of arrival: ambulatory Limitations: no limitations History of Present Illness HPI narrative: 67-year-old with a history of hypertension, hyperlipidemia, chronic back pain here with complaints of right upper abdominal pain radiating into his mid abdomen. Patient states that he was discharged few hours ago from the ER for back pain patient states that he felt better after he was discharged but soon after he got home he started having pain in the right upper quadrant area. He denies any nausea, vomiting, fever or chills. MD elicited complaint: abdominal pain Pertinent past history: none Onset (ago): day(s) (1) Pain Consistency: constant Location: RUQ Severity: moderate Quality: aching Radiation: back Exacerbating factors: nothing Relieving factors: nothing Associated symptoms: denies other symptoms Related Data Home Medications Medication Instructions Recorded Confirmed multivitamin 1 tablet PO DAILY 09/29/19 07/09/22 polyethylene glycol 3350 17 gram 17 g PO DAILY 01/30/21 07/09/22 oral powder packet (Miralax) Allergies Allergy/AdvReac Type Severity Reaction Status Date / Time codeine AdvReac Mild Nausea Verified 09/10/22 02:16 Review of Systems Review of Systems: All systems reviewed & are unremarkable except as noted in HPI and below Constitutional: Constitutional: Reports no additional constitutional complaints Eyes: Eyes: Reports no additional eye complaints ENT: Reports system reviewed and no additional complaints, except as documented Cardiovascular: Cardiovascular: Reports no additional cardiovascular complaints Respiratory: Respiratory: Reports no additional respiratory complaints Gastrointestinal: Gastrointestinal: Reports as per HPI Genitourinary: Genitourinary: Reports no additional male genitourinary complaints Musculoskeletal: Musculoskeletal: Reports as per HPI Neurologic: Reports system reviewed and no additional complaints, except as documented PMFSH Past Medical History Medical History Allergic rhinitis Body aches Chronic constipation HTN (hypertension) Obesity Pure hypercholesterolemia Thoracic spine fracture Surgical History Surgical History History of circumcision History of wisdom tooth extraction Status post Dupuytren's fasciectomy Family History Family History Father Patient's father is in good health Sibling Family history of pancreatic cancer Mother Family history of malignant neoplasm of thyroid Social History Social History Social History: The patient is and has 2 children. He is retired from [employer]. He occasionally drinks a beer. He denies any marijuana or illicit drugs. The patient stated that his 2 boys are his durable power personal injury attorney for healthcare. Code status full code Smoking status: Never smoker Second hand tobacco smoke exposure: Yes Alcohol intake: never Drinks per week: 2 Alcohol use details: socially Substance use: never Substance use type: does not use Gender identity (if verbalized by the patient): Male Spiritual care concerns: No Exam Narrative: GENERAL: Well-appearing, well-nourished, and in no acute distress. HEAD: Normocephalic, atraumatic. EYES: PERRLA and EOMI. NECK: Supple. CHEST: Clear to auscultation. No respiratory distress. HEART: Regular rate and rhythm. No murmur heard. Normal peripheral pulses. ABDOMEN: Soft, tender in the ruq , nondistended, normal active bowel sounds. EXTREMITIES: Normal range of motion. No edema. SKIN: Warm, dry, no rash. NEURO: No focal deficits. Alert and oriented x3. PSYCH: Normal mood a
[2022-09-10 11:46] LABS: Lactic Acid 2.3 mmol/L (0.7-2.0)
[2022-09-10 12:11] LABS: Influenza A QL RT-PCR Negative (Negative); Influenza B QL RT-PCR Negative (Negative); SARS-CoV-2 RNA PCR Negative
--- NOTE | 2022-09-10 12:24 | PM.CNGS ---
Assessment and Plan Assessment and plan (1) Cholelithiasis with acute on chronic cholecystitis: Code(s): K80.12 - Calculus of gallbladder with acute and chronic cholecystitis without obstruction Status: Acute Assessment and Plan: I will recommend pain control, IV antibiotics and observation. Patient may need urgent or interval laparoscopic cholecystectomy. Repeat labs in a.m. and if cleared by Medicine for general anesthesia consider laparoscopic cholecystectomy with possible intraoperative cholangiogram possible open cholecystectomy in the near future. 1700: I had a thorough discussion with the patient regarding our suspicions that he has acute cholecystitis with cholelithiasis. I have discussed with him the risks, benefits, and possible complications of a laparoscopic cholecystectomy, possible intraoperative cholangiogram, possible open cholecystectomy in the setting of suspected acute cholecystitis. This includes but is not limited to injury to the common bile duct, bleeding, infection, possible injury to surrounding organs, and possible medical problems such as DVT or postop pneumonia. I presented him with a gallbladder information sheet detailing possible complications and problems with this and the possibility that we may need to convert to an open procedure. I have also provided him with a low-fat diet which I think he should stay on after surgery both for the 2 weeks after surgery and if possible to help him lose weight and decrease his problems with hyperlipidemia after that time. I answered his questions and he would like to proceed with a laparoscopic cholecystectomy tomorrow. I have tentatively scheduled him for 3:00 p.m. tomorrow pending medical clearance for his other medical problems by the hospitalist. (2) HTN (hypertension): Code(s): I10 - Essential (primary) hypertension Status: Acute Assessment and Plan: On medications (okay to take meds with sips of water today). (3) Chronic low back pain: Code(s): M54.5 - Low back pain; G89.29 - Other chronic pain Status: Acute Assessment and Plan: Patient has known compression fracture at level T11 (4) IFG (impaired fasting glucose): Code(s): R73.01 - Impaired fasting glucose Status: Acute (5) Pure hypercholesterolemia: Code(s): E78.00 - Pure hypercholesterolemia, unspecified Status: Acute (6) Morbid obesity with BMI of 40.0-44.9, adult: Code(s): E66.01 - Morbid (severe) obesity due to excess calories; Z68.41 - Body mass index [BMI] 40.0-44.9, adult Status: Acute Assessment and Plan: have encouraged patient to stick to a low-fat diet both after surgery and continuing which would help both this and also possibly his hypercholesterolemia. History of Present Illness Consult details Consult date: 09/10/22 Reason for consult: gallstones (Probable acute cholecystitis with cholelithiasis) Narrative: This patient is a pleasant morbidly obese 67-year-old white male whom I was called about from the emergency room this morning because of upper abdominal pain. He apparently has a history of hypertension, hyperlipidemia, chronic back pain and was here at the [facility] early this morning with complaints of back pain but returned with complaints of right upper abdominal pain radiating into his mid abdomen.? Patient states that he was discharged a few hours before returning to the ER for this some what different pain. The patient states that he felt better after he was discharged early this AM, but soon after he got home he started having pain in the right upper quadrant area of his abd..? He denies any nausea, vomiting, fever or chills. further workup in the ED this morning reveals a CT scan showing suggestion of some stranding around the gallbladder. Also mild gallbladder distension. ( also incidentally enlarged left seminal vesicle) ----- also lytic lesions in the left lower i
--- NOTE | 2022-09-10 13:12 | ADMGEN ---
This patient, Ollie Anderson, was admitted to 3 [facility] Surg Room 300-01. Patient/family oriented to hospital policies and general routines including ID bracelet, bed and alarms, visiting hours, pain management, procedures, bathroom and other care routines, personal items, smoking policy, room service/diet, and visiting hours. Information on how to activate the Rapid Response Team has been discussed. Patient/Family are encouraged to report perceived risks to care and to ask questions if they do not understand what they are told or what they should do.
[2022-09-10] MEDS: SODIUM CHLORIDE 0.9% IV 1,000 ML 125 ML IV CONT ×2 (13:38→21:56)
--- NOTE | 2022-09-10 14:55 | PM.IMHP ---
H&P: HPI History of Present Illness Date/Time: 09/10/22 13:45 Chief Complaint: Abdominal pain. Narrative: This is a pleasant 67-year-old male with hypertension, hyperlipidemia, prediabetes, and chronic back pain related to prior thoracic fracture who presented to the emergency department for evaluation at abdominal pain. He was seen in the ED early this morning at about 03:00 with acute on chronic back pain after shoveling snow. He was discharged with prescriptions for Lidoderm patch and cyclobenzaprine with directions to follow up with his primary doctor. He felt better on discharge however not long after returning home he developed pain in the right upper quadrant radiating into the periumbilical region and he returned. Thinking back he wonders if the pain he was experiencing earlier was related to this abdominal pain and not his back. He describes the pain as a constant, aching pain which seems to be a bit colicky. He has never had similar symptoms. He has some clear liquids this afternoon which did not seem to make the pain any worse. He has not had fever, chills, sweats, nausea, or vomiting. CT scan of the abdomen and pelvis showed gallbladder distention with stranding and subsequent ultrasound showed cholelithiasis with possible signs of acute cholecystitis. He is being admitted in this setting for IV antibiotics, pain control, and surgery consultation. Review of Systems Review of Systems: Twelve systems were reviewed and are negative except for as per HPI. [facility] Past Medical History Medical History (Updated 09/11/22 @ 00:00 by Ne White) Allergic rhinitis Chronic back pain Chronic constipation Hypertension Obesity Prediabetes Pure hypercholesterolemia Thoracic spine fracture Surgical History Surgical History History of circumcision History of wisdom tooth extraction Status post Dupuytren's fasciectomy Family History Family History Father Patient's father is in good health Sibling Family history of pancreatic cancer Mother Family history of malignant neoplasm of thyroid Social History Social History (Updated 09/10/22 @ 15:07 by Jenni Ruby PA-C) Social History: with 2 children. Retired from the health department. Nonsmoker. Occasional alcohol in moderation. No illicit substance abuse. He designates his sons as his surrogate decision makers any wishes to be a full code. Alcohol use details: socially Lack of Transportation: No Lack of Food: Never True Current Housing: I Have Housing Concerned About Future Housing: No Difficulty Paying Gas/Electric Bills: No Difficulty Paying for Meds: No Currently Unemployed: No Education: Bachelor's Degree Difficulty w/ Childcare or Family Care: No Spiritual care concerns: No Meds Home Medications and Allergies Home Medications Medication Instructions Recorded Confirmed Type multivitamin 1 tablet PO DAILY 09/29/19 09/10/22 History polyethylene glycol 3350 17 gram 17 g PO DAILY 01/30/21 09/10/22 History oral powder packet (Miralax) losartan 100 mg tablet 100 mg PO QAM #90 tabs 05/31/22 09/10/22 Rx amlodipine 10 mg tablet 10 mg PO DAILY #90 tabs 07/04/22 09/10/22 Rx metoprolol succinate 50 mg 50 mg PO DAILY #30 tabs 07/09/22 09/10/22 Rx tablet,extended release 24 hr tramadol 50 mg tablet 50 mg PO Q8H PRN pain #90 tabs 08/26/22 09/10/22 Rx montelukast 10 mg tablet 10 mg PO QNOON 09/10/22 09/10/22 History Allergies Allergy/AdvReac Type Severity Reaction Status Date / Time codeine AdvReac Mild Nausea Verified 09/10/22 02:16 Vital Signs Vital Signs - 24 hr 09/10/22 07:27 09/10/22 08:05 09/10/22 08:19 Temperature 97.9 F Pulse Rate 102 H Respiratory Rate 14 Blood Pressure 161/88 H Pulse Oximetry 97 95 97 Oxygen Delivery Room Air 09/10/22 08:25 09/10/22 08:39 09/10/22 08
[2022-09-10] MEDS: MONTELUKAST SODIUM 10 MG TABLET PO (17:09)
[2022-09-10] MEDS: HYDROGEN PEROXIDE 3% SOLN(*SP) 473 ML BOTTLE 30 ML IRRIGATION (19:55)
[2022-09-11] VITALS (11 sets, daily range): BP systolic 118–134; BP diastolic 38–86; PULSE 72–86; RESP 16–25; TEMP 36.2–37.1; O2SAT 93–100
[2022-09-11] MEDS: SODIUM CHLORIDE 0.9% IV 1,000 ML 125 ML IV CONT ×3 (05:34→22:30)
[2022-09-11 06:05] LABS: Glucose Point of Care 140 mg/dl (65-105)
[2022-09-11 06:37] LABS: Basophils Percent Auto 0.6 % (0.2-1.2); Eosinophils Absolute Auto 0.1 K/mm3 (0-0.3); Hematocrit 37.5 % (42.0-52.0); Hemoglobin 12.8 g/dL (14.0-18.0); Immature Granulocyte Absolute 0.02 K/mm3 (0.00-0.031); Immature Granulocyte Percent A 0.3 % (0-0.5); Lymphocytes Percent Auto 25.4 % (18.3-44.2); Mean Corpuscular HGB Conc 34.1 g/dl (32-36); Mean Corpuscular Hemoglobin 30.6 pg (26-34); Mean Corpuscular Volume 89.7 fl (80-100); Mean Platelet Volume 9.6 fl (7.4-10.4); Monocytes Absolute Auto 1.1 K/mm3 (0.1-0.6); Monocytes Percent Auto 15.1 % (2.6-8.5); Neutrophils Absolute Auto 4.1 K/mm3 (1.3-6.7); Neutrophils Percent Auto 57.6 % (45.5-73.1); Platelet Count Result 238 k/mm3 (150-375); Red Blood Count 4.18 M/mm3 (4.6-6.20); Red Cell Distribution Width 12.5 % (11.5-14.5); White Blood Count 7.1 K/mm3 (4.5-10.0)
[2022-09-11 06:44] LABS: Alanine Aminotransferase 22 U/L (6-50); Albumin Level 3.5 g/dL (3.5-5.1); Alkaline Phosphatase 67 U/L (38-126); Amylase 36 U/L (30-110); Anion Gap 5 mmol/L (8-16); Aspartate Amino Transferase 21 U/L (17-59); Bilirubin,Total 1.2 mg/dL (0.2-1.3); Blood Urea Nitrogen 12 mg/dL (9-20); Calcium 8.1 mg/dL (8.4-10.2); Carbon Dioxide 27 mmol/L (22-30); Chloride 106 mmol/L (98-107); Estimated CRCL calculation 115 ml/min; Estimated Glomerular Filt Rate > 60; Glucose 124 mg/dL (65-110); Lipase 19 U/L (23-300); Potassium 3.8 mmol/L (3.4-5.0); Sodium 138 mmol/L (137-145)
[2022-09-11] MEDS: METOPROLOL SUCCINATE EXT REL 50 MG TABCR PO (08:27)
[2022-09-11] MEDS: amLODIPine BESYLATE 5 MG TABLET 10 MG PO (08:27)
[2022-09-11] MEDS: CHLORHEXIDINE GLUCONATE 4% SOL 120 ML BTL 1 APPLIC TOPICAL (08:35)
[2022-09-11] MEDS: ENOXAPARIN 40 MG/0.4 ML SYRINGE SUB-Q (09:14)
--- NOTE | 2022-09-11 12:00 | PM.IMPN ---
Progress Note: A&P Assessment and Plan (1) Cholelithiasis with acute on chronic cholecystitis: Code(s): K80.12 - Calculus of gallbladder with acute and chronic cholecystitis without obstruction Status: Acute Assessment and Plan: CT of the abdomen pelvis showed mildly distended gallbladder with inflammatory changes abdominal ultrasound shows cholelithiasis with gallbladder wall thickening and mild gallbladder distention and consistent with acute cholecystitis general surgery consulted thank you for your help appears to have a surgical intervention is scheduled for today Zosyn continued for now pain medications on board IV fluids for hydration NPO status for now AST ALT stable for now T bili 1.2 (2) Hypertension: Code(s): I10 - Essential (primary) hypertension Status: Acute Assessment and Plan: Current BP is 128/68 Continue home amlodipine, losartan, metoprolol Trend BP Adjust therapy as indicated (3) Prediabetes: Code(s): R73.03 - Prediabetes Status: Acute Assessment and Plan: Current Glucose 124 A1c was 6.0, check A1c Appears to be diet controlled. Trend labs Adjust therapy as indicated (4) Chronic back pain: Code(s): M54.9 - Dorsalgia, unspecified; G89.29 - Other chronic pain Status: Acute Assessment and Plan: Pain medications on board Encourage movement Time Spent With Patient Time with patient: Greater than 35 minutes Subjective Date/time seen: 09/11/22 1200 Interval history: 09/11/22 1200 Patient was sitting in the chair. Patient stated he is doing okay and is eager to get the surgery over with. He denies any chest pain, shortness a breath, nausea, vomiting, diarrhea, constipation, weakness fatigue. 09/10/22? 13:45 This is a pleasant 67-year-old male with hypertension, hyperlipidemia, prediabetes, and chronic back pain related to prior thoracic fracture who presented to the emergency department for evaluation at abdominal pain. He was seen in the ED early this morning at about 03:00 with acute on chronic back pain after shoveling snow. He was discharged with prescriptions for Lidoderm patch and cyclobenzaprine with directions to follow up with his primary doctor. He felt better on discharge however not long after returning home he developed pain in the right upper quadrant radiating into the periumbilical region and he returned. Thinking back he wonders if the pain he was experiencing earlier was related to this abdominal pain and not his back. He describes the pain as a constant, aching pain which seems to be a bit colicky. He has never had similar symptoms. He has some clear liquids this afternoon which did not seem to make the pain any worse. He has not had fever, chills, sweats, nausea, or vomiting. CT scan of the abdomen and pelvis showed gallbladder distention with stranding and subsequent ultrasound showed cholelithiasis with possible signs of acute cholecystitis. He is being admitted in this setting for IV antibiotics, pain control, and surgery consultation. Review of Systems Review of Systems: All systems reviewed & are unremarkable except as noted in HPI and below Exam Narrative: General: Well-developed, nontoxic-appearing male sitting in a chair with NARD HEENT: PERRL, EOMI. Sclera anicteric. Oral mucosa moist. Neck: Supple. Respiratory: Lungs are clear to auscultation bilaterally. Cardiovascular: Regular rate and rhythm with S1-S2. Gastrointestinal: Abdomen is soft and nondistended with positive bowel sounds. no tenderness on exam. No guarding or rebound tenderness. Negative Wright sign. Skin: Warm and dry. No rash or lesions on limited exam. Extremities: No cyanosis, clubbing, with 3+ pitting edema to the bilateral lower extremities. Radial and pedal pulses intact. Neurological: Alert. Cranial nerves 2-12 are grossly intact. No gr
--- NOTE | 2022-09-11 12:00 | WPDHPUPDATE1 ---
History and Physical Update Update Date/Time: 09/11/22 12:00 History and Physical has been reviewed, including an updated exam of the patient. There are changes in the patient's condition.His white count has come down to normal range. His pain is improving while on antibiotics. Risks, benefits, and alternatives have been discussed and questions answered. Patient agrees to proceed with procedure.
[2022-09-11 12:29] LABS: Glucose Point of Care 147 mg/dl (65-105)
[2022-09-11] MEDS: LACTATED RINGERS 1,000 ML 30 ML IV CONT ×2 (14:10→17:05)
--- NOTE | 2022-09-11 14:31 | WPDANESEPP ---
Anes - Eval Pre Procedure Procedure: Operation Date: 09/11/22 15:30 Proposed Procedures p Laparoscopic Cholecystectomy,Possible Intaoperative Cholangiograms,Possible Open - Joe Brunner MD Date/Time: 09/11/22 14:31 Surgeon: carina Pre Op Diagnosis: ACUTE CHOLECYSTITIS Patient Data Age: 67 Gender: M Height: 1.91 m Weight: 126.2 kg Last Vital Signs Temp 36.8 C 09/11/22 10:54 Pulse 80 09/11/22 10:54 Resp 16 09/11/22 10:54 BP 130/86 09/11/22 10:54 Pulse Ox 95 09/11/22 10:54 O2 Del Method Room Air 09/11/22 08:00 Allergies Allergy/AdvReac Type Severity Reaction Status Date / Time codeine AdvReac Mild Nausea Verified 09/11/22 14:15 Home Medications Medication Instructions Recorded Confirmed Type multivitamin 1 tablet PO DAILY 09/29/19 09/10/22 History polyethylene glycol 3350 17 gram 17 g PO DAILY 01/30/21 09/10/22 History oral powder packet (Miralax) losartan 100 mg tablet 100 mg PO QAM #90 tabs 05/31/22 09/10/22 Rx amlodipine 10 mg tablet 10 mg PO DAILY #90 tabs 07/04/22 09/10/22 Rx metoprolol succinate 50 mg 50 mg PO DAILY #30 tabs 07/09/22 09/10/22 Rx tablet,extended release 24 hr tramadol 50 mg tablet 50 mg PO Q8H PRN pain #90 tabs 08/26/22 09/10/22 Rx montelukast 10 mg tablet 10 mg PO QNOON 09/10/22 09/10/22 History Laboratory Tests 09/11/22 09/11/22 09/11/22 05:54 05:54 05:54 WBC 7.1 K/mm3 K/mm3 (4.5-10.0) RBC 4.18 M/mm3 L M/mm3 (4.6-6.20) Hgb 12.8 g/dL L g/dL (14.0-18.0) Hct 37.5 % L % (42.0-52.0) MCV 89.7 fl fl (80-100) MCH 30.6 pg pg (26-34) MCHC 34.1 g/dl g/dl (32-36) RDW 12.5 % % (11.5-14.5) Plt Count 238 k/mm3 k/mm3 (150-375) MPV 9.6 fl fl (7.4-10.4) Immature Gran % (Auto) 0.3 % % (0-0.5) Neut % (Auto) 57.6 % % (45.5-73.1) Lymph % (Auto) 25.4 % % (18.3-44.2) Alpine % (Auto) 15.1 % H % (2.6-8.5) Eos % (Auto) 1.0 % % (0-4.4) Baso % (Auto) 0.6 % % (0.2-1.2) Lymph # (Auto) 1.80 K/mm3 K/mm3 (0.9-3.2) Alpine # (Auto) 1.1 K/mm3 H K/mm3 (0.1-0.6) Eos # (Auto) 0.1 K/mm3 K/mm3 (0-0.3) Baso # (Auto) 0.0 K/mm3 K/mm3 (0.0-0.1) Abs Immat Gran (auto) 0.02 K/mm3 K/mm3 (0.00-0.031) Absolute Neuts (auto) 4.1 K/mm3 K/mm3 (1.3-6.7) Absolute Nucleated RBC 0.0 K/mm3 K/mm3 (0.0-0.012) Nucleated RBC % 0.0 % % (0.0-0.2) Sodium 138 mmol/L mmol/L (137-145) Potassium 3.8 mmol/L mmol/L (3.4-5.0) Chloride 106 mmol/L mmol/L (98-107) Carbon Dioxide 27 mmol/L mmol/L (22-30) Anion Gap 5 mmol/L L mmol/L (8-16) BUN 12 mg/dL mg/dL (9-20) Creatinine 0.80 mg/dL mg/dL (0.7-1.3) Estim Creat Clear Calc 115 ml/min ml/min Estimated GFR > 60 (59 - ) Glucose 124 mg/dL H mg/dL (65-110) POC Capillary Glucose Lactic Acid 1.0 mmol/L mmol/L (0.7-2.0) Calcium 8.1 mg/dL L mg/dL (8.4-10.2) Magnesium 2.0 mg/dL mg/dL (1.6-2.3) Total Bilirubin 1.2 mg/dL mg/dL (0.2-1.3) AST 21 U/L U/L (17-59) ALT 22 U/L U/L (6-50) Alkaline Phosphatase 67 U/L U/L (38-126) Total Protein 6.0 g/dL L g/dL (6.3-8.2) Albumin 3.5 g/dL g/dL (3.5-5.1) Amylase 36 U/L U/L (30-110) Lipase 19 U/L L U/L (23-300) Blood Type Antibody Screen 09/11/22 09/11/22 09/11/22 05:54 06:01 12:19 WBC RBC Hgb Hct MCV MCH MCHC RDW Plt Count MPV Immature Gran % (Auto) Neut % (Auto) Lymph % (Auto) Alpine % (Auto) Eos % (
--- NOTE | 2022-09-11 14:34 | P.PNAN_ITS ---
Anes - Eval Final PreProcedure Day of Procedure 09/11/22 14:34 Patient weight: obese Heart: regular rate and rhythm Lungs: clear to auscultation Airway: Mallampati scale class II Neurological: alert and oriented Last oral intake: >/= 8 hours ASA classification: III Emergent: no Anesthetic plan: proceed Anesthesia type and monitoring: general ETT and standard monitoring Results Review: All pre-operative results and documents have been reviewed as part of the pre- operative evaluation. Informed Consent: The patient's anesthetic plan and its attendant risks and benefits were discussed with the patient/family/POA. Questions were solicited and answers provided to the satisfaction of the patient/family/POA.
[2022-09-11] MEDS: BUPIVACAINE HCL 0.5% PF 30 ML VIAL 20 ML INFILTRATE (15:09)
--- NOTE | 2022-09-11 15:21 | SUR.OPER ---
Aerobic, anaerobic c&s with gram stain of bile sent with gisell Bellamy to pathology
--- NOTE | 2022-09-11 17:03 | W.PM.PROC2 ---
Procedure Note - Detailed Date of Procedure 09/11/22 Pre-op Diagnosis ACUTE CHOLECYSTITIS with cholelithiasis Post-op Diagnosis Same Procedure Performed Laparoscopic cholecystectomy with intraoperative cholangiogram Surgeon Joe Brunner MD Crane Engineer PIERRE Luu.OR [employer] [facility] General Indications Patient had a CT scan yesterday suggesting stranding around the gallbladder. Subsequent ultrasound confirmed gallstones with thickened gallbladder wall and with elevated lactate along with an elevated white count. The patient was placed in the hospital on IV antibiotics and thorough discussion was undertaken regarding the need for laparoscopic cholecystectomy in this setting. It appeared he had acute cholecystitis and this was the indication for the procedure. Findings The patient had a mildly distended bladder upon inspection in the pelvis at the beginning of the case. The gallbladder was distended and turning deep dark red and green in some areas. There was significant inflammatory change in the area of the of triangle of [place]. Description of Procedure Procedure Details: Patient was seen preoperatively in his room on the nursing floor and risks, benefits and alternatives confirmed. Patient was taken to the operating room and general anesthesia was induced. A time out was then preformed with the surgery team confirming patient and site of surgery. The abdomen was prepped and draped in the usual sterile fashion. An Ioban sterile drape was used to help keep all the drapes in good position in view of his large size. Incision was made just above the umbilicus. Two stay sutures of O- Vicryl were used to elevate the mid-line fascia at the upper end of the umbilicus and a small incision was made through the fascia and into the peritoneum under direct vision. The peritoneum was entered. The 12 mm Biswas cannula was introduced under direct vision. First under low flow and then under high flow the abdomen was insufflated with carbon dioxide never exceeding a pressure of 15. Two 5 mm trocars and one 12mm were then introduced under direct vision. The following trocars were introduced under direct vision: a 12 mm in the epigastrium and two 5 mm trocars along the right costal margin. There were minimal adhesions in the area of the neck of the gallbladder. The gallbladder was surrounded by omentum with initial evaluation and it was turning red and dark green as if becoming somewhat necrotic. Because we had difficulty grasping the GB due to it's distention, a long aspirating needle connected to a 20 cc syringe was inserted via the middle subcostal port and used to aspirate 12cc of dark brown bile out of the GB. This was sent for gram stain, aerobic & anaerobic C & S. Then a suction tubing was connected to the needle and more bile was removed until the GB was nicely collapsed so that it was easier to grasp. The gall bladder was grasped and the cystic duct and artery were dissected free and I carefully identified a window of safety with only two other structures in the area being the cystic duct and the cystic artery. I then used a 5 mm endo-clip elementary summer school teacher to place 2 clips on the patient's side 1 on the gallbladder side on the cystic artery and just 1 clip on the gallbladder side of the cystic duct. A small hole was made in the cystic duct with Endoshears and a cholagio-cath introduced. This was held in place with a single 5 mm clip. A cholangiogram was obtained revealing free flow into the cystic duct (which in this case was quite long), the common bile duct, common hepatic, right and left hepatic ducts with free flow into the duodenum with no filling defects in the intra nor extrahepatic biliary tree and no dilation. The catheter was removed and the cystic duct was clipped with a 5 mm endoclip-elementary summer school teacher placing 2 clips on the patient's side of the cystic duct. The cystic duct was then transected. The cystic artery was also transected at this point. The gall bladder w
[2022-09-11 17:21] LABS: Glucose Point of Care 187 mg/dl (65-105)
[2022-09-11] MEDS: fentaNYL CITRATE INJ (*CRX) 100 MCG/2 ML VIAL 25 MCG IV PUSH ×4 (17:25→17:31)
[2022-09-11] MEDS: HYDROcodone/acetaminophen (*CRX) 7.5-325 MG TABLET 1 TAB PO ×2 (19:24→23:32)
[2022-09-11] MEDS: SENNA/DOCUSATE SODIUM TABLET 2 TAB PO (20:16)
[2022-09-12] VITALS: BP 119/67; PULSE 65; RESP 16; TEMP 36.6; O2SAT 97
[2022-09-12 00:09] LABS: Glucose Point of Care 146 mg/dl (65-105)
[2022-09-12] MEDS: HYDROcodone/acetaminophen (*CRX) 7.5-325 MG TABLET 1 TAB PO (04:17)
[2022-09-12 05:59] VITALS: BP 134/72; PULSE 67; RESP 16; TEMP 36.6; O2SAT 95
[2022-09-12 07:03] LABS: Basophils Percent Auto 0.2 % (0.2-1.2); Hematocrit 35.8 % (42.0-52.0); Hemoglobin 12.1 g/dL (14.0-18.0); Immature Granulocyte Absolute 0.04 K/mm3 (0.00-0.031); Immature Granulocyte Percent A 0.5 % (0-0.5); Lymphocytes Absolute Auto 1.37 K/mm3 (0.9-3.2); Lymphocytes Percent Auto 16.2 % (18.3-44.2); Mean Corpuscular HGB Conc 33.8 g/dl (32-36); Mean Corpuscular Hemoglobin 31.3 pg (26-34); Mean Corpuscular Volume 92.7 fl (80-100); Mean Platelet Volume 9.8 fl (7.4-10.4); Monocytes Percent Auto 11.7 % (2.6-8.5); Neutrophils Absolute Auto 6.1 K/mm3 (1.3-6.7); Neutrophils Percent Auto 71.4 % (45.5-73.1); Platelet Count Result 244 k/mm3 (150-375); Red Blood Count 3.86 M/mm3 (4.6-6.20); Red Cell Distribution Width 12.7 % (11.5-14.5); White Blood Count 8.5 K/mm3 (4.5-10.0)
[2022-09-12 07:09] LABS: Alanine Aminotransferase 42 U/L (6-50); Albumin Level 3.4 g/dL (3.5-5.1); Alkaline Phosphatase 65 U/L (38-126); Anion Gap 5 mmol/L (8-16); Aspartate Amino Transferase 46 U/L (17-59); Bilirubin,Total 0.9 mg/dL (0.2-1.3); Blood Urea Nitrogen 12 mg/dL (9-20); Calcium 8.3 mg/dL (8.4-10.2); Carbon Dioxide 26 mmol/L (22-30); Chloride 106 mmol/L (98-107); Estimated CRCL calculation 130 ml/min; Estimated Glomerular Filt Rate > 60; Glucose 131 mg/dL (65-110); Magnesium 2.2 mg/dL (1.6-2.3); Sodium 137 mmol/L (137-145)
[2022-09-12 07:59] VITALS: PULSE 67
[2022-09-12] MEDS: LOSARTAN POTASSIUM 100 MG TABLET PO (07:59)
[2022-09-12] MEDS: METOPROLOL SUCCINATE EXT REL 50 MG TABCR PO (07:59)
[2022-09-12] MEDS: amLODIPine BESYLATE 5 MG TABLET 10 MG PO (07:59)
[2022-09-12] MEDS: MULTIVITAMINS THERAPEUTIC TAB (*BKC) 1 TABLET PO (07:59)
[2022-09-12] MEDS: ENOXAPARIN 40 MG/0.4 ML SYRINGE SUB-Q (08:00)
[2022-09-12] MEDS: polyethylene glycoL 3350 17 GM POWD.PACK PO (08:00)
[2022-09-12] MEDS: traMADol HCL (*CRX) 50 MG TABLET PO (08:06)
[2022-09-12 10:05] VITALS: O2SAT 96
--- NOTE | 2022-09-12 10:28 | PM.PNGS ---
Progress Note: A&P Assessment and Plan (1) Cholelithiasis with acute on chronic cholecystitis: Code(s): K80.12 - Calculus of gallbladder with acute and chronic cholecystitis without obstruction Status: Acute Assessment and Plan: done well postop day 1. Antibiotics were continued for nearly 24 hours after his surgery in view of the significant inflammation present. Culture the bile are pending but I believe does not need further antibiotics unless he began showing signs of infection. He will receive his last dose of Zosyn at around noon today and then will be discharged. I have will instructed him on what to watch for. He will follow up with the surgeon in our office in about 2 weeks. Wound care instructions given see discharge plan. (2) Hypertension: Code(s): I10 - Essential (primary) hypertension Status: Acute Assessment and Plan: Patient will resume home medications and work with Dr. Roger regarding these. (3) Obesity: Code(s): E66.9 - Obesity, unspecified Status: Acute Assessment and Plan: Encourage patient to follow the low-fat diet that we provided with our gallbladder instruction sheet. If he does so many of the current problems he has may improve just with loss of weight and control of calories in his diet. (4) Chronic back pain: Code(s): M54.9 - Dorsalgia, unspecified; G89.29 - Other chronic pain Status: Acute Assessment and Plan: Patient has tramadol at home for this. I have talked with him and he will take tramadol once every 6 hours or once every 8 hours as needed for his incisional pain for the next 2 days. Then he will return to to taking it as needed if he has significant back pain. (5) IFG (impaired fasting glucose): Code(s): R73.01 - Impaired fasting glucose Status: Acute Assessment and Plan: Patient continued to show slight increases in blood sugar between 100 & 140 throughout his hospital stay. (6) Disorder of seminal vesicle: Code(s): N50.9 - Disorder of male genital organs, unspecified Status: Acute Assessment and Plan: An incidental finding on the patient's CT scan done in the ER is an enlarged seminal vesicle on the left. ( please CT scan report). Radiologist recommended consideration for urological referral and further outpatient workup and I would agree with this. Subjective Subjective Date/Time Seen: 09/12/22 10:28 Post Op day: 1 ( Done well status post laparoscopic cholecystectomy with IOC) Patient reports: no new complaints and tolerating a regular diet ( Low fat) Interval history: patient states he took a tramadol with his usual meds this morning and his pain is in good control. Review of Systems Review of Systems: All systems reviewed & are unremarkable except as noted in HPI and below Constitutional: Constitutional: Reports as per HPI, Denies chills and Denies fever(s) Cardiovascular: Cardiovascular: Denies chest pain and Denies dyspnea Respiratory: Respiratory: Reports no additional respiratory complaints and Denies dyspnea Gastrointestinal: Gastrointestinal: Reports as per HPI and Denies bloating Musculoskeletal: Musculoskeletal: Reports no additional musculoskeletal complaints Neurologic: Denies memory loss Psychiatric: Psychiatric: Denies anxiety and Denies memory loss Exam Const: General: cooperative, comfortable, alert and awake Orientation/consciousness: patient oriented x3 HENMT: Head: normal to inspection Mouth: Yes moist mucous membranes Eyes: Sclera: sclerae normal Pupils: Equal, round and reactive pupils present Neck: Neck: normal visual inspection and no JVD Chest: Chest palpation & inspection: normal inspection of the chest Resp: Effort & Inspection: normal respiratory effort Auscultation: clear to auscultation bilaterally Cardio: Rate: regular rate GI: Inspection: incision ( Clean and dry with no erythema), obesity and
--- NOTE | 2022-09-12 10:45 | PM.DS ---
DS: Admitting Diagnosis Discharge Date 09/12/22 1045 Admitting Diagnosis cholelithiasis with acute cholecystitis DS: Discharge Diagnosis Discharge Diagnosis (1) Cholelithiasis with acute on chronic cholecystitis: Code(s): K80.12 - Calculus of gallbladder with acute and chronic cholecystitis without obstruction Status: Acute Assessment and Plan: CT of the abdomen pelvis showed mildly distended gallbladder with inflammatory changes abdominal ultrasound shows cholelithiasis with gallbladder wall thickening and mild gallbladder distention and consistent with acute cholecystitis general surgery consulted thank you for your help appears to have a surgical intervention is scheduled for today Zosyn continued for now pain medications on board IV fluids for hydration tolerating low fat diet AST ALT stable for now T bili 1.2 (2) Hypertension: Code(s): I10 - Essential (primary) hypertension Status: Acute Assessment and Plan: Current BP is 134/72 Continue home amlodipine, losartan, metoprolol Trend BP Adjust therapy as indicated (3) Prediabetes: Code(s): R73.03 - Prediabetes Status: Acute Assessment and Plan: Current Glucose 131 A1c was 6.0 Appears to be diet controlled. Trend labs Adjust therapy as indicated (4) Chronic back pain: Code(s): M54.9 - Dorsalgia, unspecified; G89.29 - Other chronic pain Status: Acute Assessment and Plan: Pain medications on board Encourage movement DS: Summary Hospital Course Hospital Course: patient is 67-year-old male with a past medical history of hypertension, hyperlipidemia, prediabetes and chronic back pain who presented to the emergency department for evaluation of abdominal pain. Upon arrival patient had a CT of the abdomen and pelvis that showed gallbladder distention with stranding. abdominal ultrasound showed cholelithiasis with possible acute cholecystitis. General surgery was consulted patient was started on IV Zosyn. Patient was taken for cholecystectomy on 09/11/2022 and has been doing well postop. Patient has been able to tolerate a low-fat diet and pain has been minimal. He currently denies any chest pain, shortness a breath, nausea, vomiting, diarrhea, constipation, weakness or fatigue. Patient is anxious about discharge at this time. Talked to surgery who is agreeable to discharge and labs and vital signs remained stable. Patient will be discharged home and will follow-up with General surgery in 2 weeks. Status at Discharge Functional status at discharge: independent ambulation Overall status at discharge: patient is progressing back to baseline Time Spent with Patient Time attestation: Total time spent providing and/or coordinating discharge services: 37 minutes Time spent: Greater than 30 minutes Specific discharge activities: Diagnostic testing, chart review, developing a treatment plan, education, care coordination documentation, physical exam, result review Exam Narrative: General: Well-developed, nontoxic-appearing male sitting in a chair with NARD HEENT: PERRL, EOMI. Sclera anicteric. Oral mucosa moist. Neck: Supple. Respiratory: Lungs are clear to auscultation bilaterally. Cardiovascular: Regular rate and rhythm with S1-S2. Gastrointestinal: Abdomen is soft and nondistended with positive bowel sounds. no tenderness on exam. No guarding or rebound tenderness. Negative Wright sign. Skin: Warm and dry. surgical incisions look good with no swelling or drainage with topical glue Extremities: No cyanosis, clubbing, with 3+ pitting edema to the bilateral lower extremities. Radial and pedal pulses intact. Neurological: Alert. Cranial nerves 2-12 are grossly intact. No gross focal deficits to casual conversation. Psychiatric: Pleasant and cooperative with normal mood and affect. Judgment and insight intact.
[2022-09-12 11:28] VITALS: BP 124/64; PULSE 67; RESP 16; TEMP 36.7; O2SAT 97
[2022-09-12] MEDS: MONTELUKAST SODIUM 10 MG TABLET PO (12:00)
--- NOTE | 2022-09-12 12:28 | WPDANESPN ---
Anes - Prog Note Post-Op Date/Time: 09/12/22 12:28 Vital Signs: Last Vital Signs Temp 36.7 C 09/12/22 11:28 Pulse 67 09/12/22 11:28 Resp 16 09/12/22 11:28 BP 124/64 09/12/22 11:28 Pulse Ox 97 09/12/22 11:28 O2 Del Method Room Air 09/12/22 10:05 O2 Flow Rate 2 09/11/22 17:41 Pain Score (VAS): 0 I/O: Intake & Output 09/11/22 09/12/22 09/12/22 23:59 07:59 15:59 Intake Total 2350 650 1160 Output Total 1200 Balance 5948 718 9088 Laboratory Tests 09/12/22 05:58 09/12/22 05:58 09/11/22 09/11/22 09/12/22 12:19 17:19 00:04 WBC RBC Hgb Hct MCV MCH MCHC RDW Plt Count MPV Immature Gran % (Auto) Neut % (Auto) Lymph % (Auto) [place] % (Auto) Eos % (Auto) Baso % (Auto) Lymph # (Auto) [place] # (Auto) Eos # (Auto) Baso # (Auto) Abs Immat Gran (auto) Absolute Neuts (auto) Absolute Nucleated RBC Nucleated RBC % Sodium Potassium Chloride Carbon Dioxide Anion Gap BUN Creatinine Estim Creat Clear Calc Estimated GFR Glucose POC Capillary Glucose 147 H 187 H 146 H Calcium Magnesium Total Bilirubin AST ALT Alkaline Phosphatase Total Protein Albumin 09/12/22 09/12/22 05:58 05:58 WBC 8.5 RBC 3.86 L Hgb 12.1 L Hct 35.8 L MCV 92.7 MCH 31.3 MCHC 33.8 RDW 12.7 Plt Count 244 MPV 9.8 Immature Gran % (Auto) 0.5 Neut % (Auto) 71.4 Lymph % (Auto) 16.2 L [place] % (Auto) 11.7 H Eos % (Auto) 0.0 Baso % (Auto) 0.2 Lymph # (Auto) 1.37 [place] # (Auto) 1.0 H Eos # (Auto) 0.0 Baso # (Auto) 0.0 Abs Immat Gran (auto) 0.04 H Absolute Neuts (auto) 6.1 Absolute Nucleated RBC 0.0 Nucleated RBC % 0.0 Sodium 137 Potassium 4.0 Chloride 106 Carbon Dioxide 26 Anion Gap 5 L BUN 12 Creatinine 0.70 Estim Creat Clear Calc 130 Estimated GFR > 60 Glucose 131 H POC Capillary Glucose Calcium 8.3 L Magnesium 2.2 Total Bilirubin 0.9 AST 46 ALT 42 Alkaline Phosphatase 65 Total Protein 6.0 L Albumin 3.4 L Microbiology 09/11/22 15:18 Bile Anaerobic Culture - Preliminary Patient Feedback: Patient satisfied with anesthetic care.
== END 2022-09-12 13:55 | disposition home or self-care (01) ==
LOC: ANHED 11:29 → ANH3MEDSUR 15:55
PROVIDERS: Nurse Practitioner; Surgery; Admitting Provider Family Medicine; Emergency Provider Family Medicine; PCP Family Medicine; Visit Provider Chiropractor
PROC: 0FT44ZZ Resection of Gallbladder, Percutaneous Endoscopic Approach (ICD-10-PCS; CPT 47562; principal; 2022-09-11 15:30)
DX: K80.10 Calculus of gallbladder with chronic cholecystitis without obstruction (principal); I10 Essential (primary) hypertension; R73.03 Prediabetes; E66.01 Morbid (severe) obesity due to excess calories; Z68.34 Body mass index [BMI] 34.0-34.9, adult; G89.29 Other chronic pain; M54.9 Dorsalgia, unspecified; N50.9 Disorder of male genital organs, unspecified; Z20.822 Contact with and (suspected) exposure to COVID-19; Z77.22 Contact with and (suspected) exposure to environmental tobacco smoke (acute) (chronic); K76.89 Other specified diseases of liver; K52.9 Noninfective gastroenteritis and colitis, unspecified; E78.00 Pure hypercholesterolemia, unspecified; F10.90 Alcohol use, unspecified, uncomplicated; Z79.891 Long term (current) use of opiate analgesic; Z79.899 Other long term (current) drug therapy
CPT/HCPCS: 47563; 36415; 51701; 71045; 74177; 74300; 76705; 80053; 81001; 82150; 82948; 83605; 83690; 83735; 85025; 86850; 86900; 86901; 87070; 87075; 87205; 87636; 88304; 93005; 96365; 96366; 96372; 96375; 96376; 99283; 99285; A9270; G0378; J1100; J1650; J2270; J2405; J2543; J2704; J2710; J3010; J7030; J7120; Q9966; Q9967

== ENCOUNTER 2023-02-25 10:31 | Outpatient (CLI) | payer MEDICARE, SELFPAY ==
--- NOTE | ~2023-02-25 | XR_ITS ---
EXAMINATION:XR cervical spine min 6V DATE: 02/25/2023 11:01 INDICATION: Neck pain TECHNIQUE: AP, lateral in neutral, flexion, and extension, lateral swimmers and odontoid views of the cervical spine are provided. COMPARISON: None FINDINGS: Alignment is normal. No hypermobility is present with flexion or extension. The odontoid pr ocess is intact. No fracture is identified. Vertebral body heights and disk spaces are normal. Prever tebral soft tissues are normal. There is multilevel mild facet and uncovertebral joint osteoarthritis . IMPRESSION: 1. Mild cervical spondylosis without acute findings. Reviewed, dictated and finalized at location A.
== END 2023-02-25 10:32 | disposition home or self-care (01) ==
PROVIDERS: PCP Family Medicine; Visit Provider Physician Assistant
DX: M25.512 Pain in left shoulder (principal); M54.2 Cervicalgia; M43.02 Spondylolysis, cervical region
CPT/HCPCS: 72052

== ENCOUNTER 2023-05-03 12:20 | Emergency (ER) | payer MEDICARE, SELFPAY ==
[2023-05-03] VITALS (12 sets, daily range): BP systolic 134–142; BP diastolic 76–88; PULSE 62–70; RESP 12–25; TEMP 36.4; O2SAT 95–100
--- NOTE | ~2023-05-03 | XR_ITS ---
EXAMINATION: XR chest 1V portable DATE: 05/03/2023 13:02 INDICATION: Chest tightness. TECHNIQUE: A single frontal view of the chest was obtained. COMPARISON: Chest single view 09/10/2022, CT abdomen and pelvis 09/10/2022 FINDINGS: There is mild elevation of left hemidiaphragm. No pneumonia, pleural effusion, or pneumotho rax. The heart size is normal. IMPRESSION: 1. No acute cardiopulmonary disease. Reviewed, dictated and finalized at location A.
--- NOTE | 2023-05-03 12:23 | ECG_ITS ---
Measurements Intervals [place] Rate: 68 P: 53 MT: 185 QRS: 16 QRSD: 101 T: -3 QT: 405 QTc: 432 Interpretive Statements SINUS RHYTHM WITH OCCASIONAL VENTRICULAR PREMATURE COMPLEXES OTHERWISE UNREMARKABLE ECG COMPARED TO ECG 09/10/2022 11:12:23 NO SIGNIFICANT CHANGES Electronically Signed On 05-04-2023 7:07:50 CDT by Haider Bender M.D.
[2023-05-03 13:17] LABS: Basophils Absolute Auto 0.1 K/mm3 (0.0-0.1); Eosinophils Percent Auto 0.3 % (0-4.4); Hematocrit 41.6 % (42.0-52.0); Hemoglobin 14.7 g/dL (14.0-18.0); Immature Granulocyte Absolute 0.04 K/mm3 (0.00-0.031); Immature Granulocyte Percent A 0.6 % (0-0.5); Lymphocytes Absolute Auto 1.08 K/mm3 (0.9-3.2); Lymphocytes Percent Auto 15.7 % (18.3-44.2); Mean Corpuscular HGB Conc 35.3 g/dl (32-36); Mean Corpuscular Hemoglobin 31.7 pg (26-34); Mean Corpuscular Volume 89.7 fl (80-100); Mean Platelet Volume 9.3 fl (7.4-10.4); Monocytes Absolute Auto 0.7 K/mm3 (0.1-0.6); Monocytes Percent Auto 9.6 % (2.6-8.5); Neutrophils Percent Auto 72.8 % (45.5-73.1); Platelet Count Result 273 k/mm3 (150-375); Red Blood Count 4.64 M/mm3 (4.6-6.20); Red Cell Distribution Width 11.8 % (11.5-14.5); White Blood Count 6.9 K/mm3 (4.5-10.0)
[2023-05-03 13:29] LABS: Alanine Aminotransferase 28 U/L (6-50); Albumin Level 4.4 g/dL (3.5-5.1); Alkaline Phosphatase 74 U/L (38-126); Anion Gap 8 mmol/L (8-16); Aspartate Amino Transferase 26 U/L (17-59); Bilirubin,Total 0.7 mg/dL (0.2-1.3); Blood Urea Nitrogen 16 mg/dL (9-20); Calcium 9.7 mg/dL (8.4-10.2); Carbon Dioxide 28 mmol/L (22-30); Chloride 99 mmol/L (98-107); Estimated CRCL calculation 112 ml/min; Estimated Glomerular Filt Rate > 60; Glucose 127 mg/dL (65-110); Lipase 35 U/L (23-300); Potassium 3.7 mmol/L (3.4-5.0); Sodium 135 mmol/L (137-145)
--- NOTE | 2023-05-03 13:31 | ED.GENADULT ---
HPI - General Adult General Chief complaint: Chest Pain Stated complaint: HTN / chest pressure Time Seen by Provider: 05/03/23 12:34 Source: patient Mode of arrival: ambulatory Limitations: no limitations History of Present Illness HPI narrative: This is a 68-year-old male who presents to the ED with chief complaint of chest pain beginning 3 days ago.. Patient states that he has had intermittent chest tightness/burning for the past several months that comes and goes. He states this most recent episode started back up this morning shortly after breakfast. States it has been tapering down over the morning and afternoon and reports pain is at a 1 out of 10 as he is here. He is here for further evaluation of his heart. States he had a normal stress test in January. He is reporting his blood pressures have been fluctuating with the systolics normally being 120 and today his systolic is 147 which is giving him more concern. He is also concerned that his heart rate which is normally in the 60s is now in the upper 70s. Endorses occasional palpitations/racing heart. Denies fevers, chills, abdominal pain, nausea, vomiting, LOC, worsening pain with exertion, shortness of breath, cough, leg swelling. Related Data Home Medications Medication Instructions Recorded Confirmed multivitamin 1 tablet PO DAILY 09/29/19 02/25/23 polyethylene glycol 3350 17 gram 17 g PO DAILY 01/30/21 02/25/23 oral powder packet (Miralax) montelukast 10 mg tablet 10 mg PO QNOON 09/10/22 02/25/23 Allergies Allergy/AdvReac Type Severity Reaction Status Date / Time codeine AdvReac Mild Nausea Verified 05/03/23 12:27 Review of Systems Review of Systems: All systems as dictated in [facility] Past Medical History Medical History Allergic rhinitis Chronic back pain Chronic constipation Hypertension Obesity Prediabetes Pure hypercholesterolemia Thoracic spine fracture Surgical History Surgical History History of circumcision History of wisdom tooth extraction Hx laparoscopic cholecystectomy 09/11/22 Laparoscopic cholecystectomy with intraoperative cholangiogram Status post Dupuytren's fasciectomy Family History Family History Father Patient's father is in good health Sibling Family history of pancreatic cancer Mother Family history of malignant neoplasm of thyroid Social History Social History Social History: with 2 children. Retired from the health department. Nonsmoker. Occasional alcohol in moderation. No illicit substance abuse. He designates his sons as his surrogate decision makers any wishes to be a full code. Smoking status: Never smoker Alcohol use details: socially Lack of Transportation: No Lack of Food: Never True Current Housing: I Have Housing Concerned About Future Housing: No Difficulty Paying Gas/Electric Bills: No Difficulty Paying for Meds: No Currently Unemployed: No Education: Bachelor's Degree Difficulty w/ Childcare or Family Care: No Living arrangements: alone Occupation/Education: retired Spiritual care concerns: No Exam Narrative: GENERAL: Well-appearing, well-nourished, and in no acute distress. HEAD: Normocephalic, atraumatic. EYES: PERRLA and EOMI. ENT: Nares clear, no rhinorrhea or epistaxis. Mucous membranes moist. Oropharynx without tonsillar hypertrophy exudate or other lesions. NECK: Supple. No adenopathy or masses. CHEST: No respiratory distress. Clear to auscultation. No wheezes rales or rhonchi HEART: Regular rate and rhythm. No murmur heard. Normal peripheral pulses. ABDOMEN: Soft, nontender, nondistended, normal active bowel sounds. MSK: Normal range of motion. No edema. SKIN: Warm, dry, no rash. NEURO: Alert and oriented x3. No foca
[2023-05-03 13:41] LABS: Troponin I < 0.012 ng/mL (0.000-0.034)
[2023-05-03 13:48] LABS: Partial Thromboplastin Time 30.8 SECONDS (22.3-36.8); Prothrombin Time 13.8 Seconds (11.1-14.7)
[2023-05-03 13:52] LABS: D Dimer < 0.27 ug/mL (<0.48)
[2023-05-03] MEDS: ASPIRIN 81 MG CHEWABLE TABLET 324 MG PO (14:08)
[2023-05-03 15:56] LABS: Troponin I < 0.012 ng/mL (0.000-0.034)
== END 2023-05-03 16:56 | disposition home or self-care (01) ==
PROVIDERS: Emergency Medicine; Emergency Provider Physician Assistant; PCP Family Medicine
DX: R07.89 Other chest pain (principal); I10 Essential (primary) hypertension; E78.00 Pure hypercholesterolemia, unspecified; R73.03 Prediabetes; E66.9 Obesity, unspecified; Z68.34 Body mass index [BMI] 34.0-34.9, adult; Z90.49 Acquired absence of other specified parts of digestive tract; I49.3 Ventricular premature depolarization
CPT/HCPCS: 36415; 71045; 80053; 83690; 84484; 85025; 85380; 85610; 85730; 93005; 99284; A9270

== ENCOUNTER 2023-10-11 09:25 | Outpatient (CLI) | payer MEDICARE, SELFPAY ==
--- NOTE | ~2023-10-11 | US_ITS ---
US scrotum doppler INDICATION: Right testicular pain TECHNIQUE: Testicular sonogram utilizing grayscale and color Doppler FINDINGS: The testes are normal in size and appearance. No focal lesions are seen. The right testes measures 3.9 x 2.7 x 3.1 cm centimeters, and the left testis measures 4.1 x 2.4 x 2.7 cm cm. There is normal vascular flow to both testes. There is a small right epididymal cyst. Left epididymis is unremarkable. There is a moderate right and small left hydroceles. No evidence for varicocele. IMPRESSION: 1. Bilateral hydroceles, right greater than left. Reviewed, dictated and finalized at location A. ESS CONTROL MANAGER
== END 2023-10-11 09:26 | disposition home or self-care (01) ==
PROVIDERS: PCP Family Medicine; Visit Provider Physician Assistant
DX: L72.3 Sebaceous cyst (principal); N50.89 Other specified disorders of the male genital organs
CPT/HCPCS: 76870; 93976

== ENCOUNTER 2023-12-08 10:20 | Emergency (ER) | payer MEDICARE, SELFPAY ==
--- NOTE | ~2023-12-08 | XR_ITS ---
EXAMINATION: XR abdomen/kub 1V DATE: 12/08/2023 11:11 INDICATION: Left-sided low back pain radiating to the left lower abdomen. TECHNIQUE: A supine view of the abdomen on 3 radiographs was obtained. COMPARISON: CT abdomen and pelvis 09/10/2022 FINDINGS: There are no dilated loops of bowel. There is no visible urolithiasis. Surgical clips in th e right upper quadrant are likely from cholecystectomy. There is a chronic nonaggressive bubbly lytic lesion in right iliac wing that contained fat by CT, likely benign. IMPRESSION: 1. Normal bowel gas pattern. Reviewed, dictated and finalized at location E.
[2023-12-08 10:29] VITALS: BP 133/74; PULSE 74; RESP 18; TEMP 36.4; O2SAT 100
--- NOTE | 2023-12-08 10:32 | ED.ABDPAIN ---
HPI - Abdominal Pain General Chief Complaint: Abdominal Pain Stated Complaint: abdomen pain Time Seen by Provider: 12/08/23 10:32 Source: patient Mode of arrival: ambulatory Limitations: no limitations History of Present Illness HPI narrative: 68 yo M presents with c/o L sided low back pain with radiation to L lower ABD for approx. 2 to 3 days. Afebrile. Denies urinary symptoms. Having normal BMs. Denies N/V. Pain worse with movement. Ambulatory with steady gait. C/o some cramping pain to both calves. no swelling to LEs. Denies radiation of back pain to LEs. all systems reviewed and negative except as noted above. Related Data Home Medications Medication Instructions Recorded Confirmed multivitamin 1 tablet PO DAILY 09/29/19 12/08/23 polyethylene glycol 3350 17 gram 17 g PO DAILY 01/30/21 12/08/23 oral powder packet (Miralax) famotidine 20 mg tablet (Acid 20 mg PO BID 07/25/23 12/08/23 Pound Attendant (famotidine)) Allergies Allergy/AdvReac Type Severity Reaction Status Date / Time codeine AdvReac Mild Nausea Verified 12/08/23 10:31 Review of Systems Review of Systems: CONSTITUTIONAL: Denies fever, chills, or sweats. EYES: Denies visual changes, redness, or discharge. ENT: Denies rhinorrhea, congestion, sore throat, or otalgia. CARDIOVASCULAR: Denies chest pain, palpitations, or edema. RESPIRATORY: Denies cough or dyspnea. GASTROINTESTINAL: reports left lower abdominal pain. Denies nausea, vomiting, or diarrhea. GENITOURINARY: Denies dysuria or hematuria. SKIN: Denies rash or itching. MUSCULOSKELETAL: Reports left-sided lower back pain. Denies joint pain, or myalgia. NEUROLOGIC: Denies headache, numbness, or weakness. PSYCHIATRIC: Denies anxiety or depression. All other systems reviewed are negative, except as documented in HPI. [facility] Past Medical History Medical History Allergic rhinitis Chronic back pain Chronic constipation Hypertension Obesity Prediabetes Pure hypercholesterolemia Thoracic spine fracture Surgical History Surgical History History of circumcision History of wisdom tooth extraction Hx laparoscopic cholecystectomy 09/11/22 Laparoscopic cholecystectomy with intraoperative cholangiogram Status post Dupuytren's fasciectomy Family History Family History Father Patient's father is in good health Sibling Family history of pancreatic cancer Mother Family history of malignant neoplasm of thyroid Social History Social History Social History: with 2 children. Retired from the health department. Nonsmoker. Occasional alcohol in moderation. No illicit substance abuse. He designates his sons as his surrogate decision makers any wishes to be a full code. Smoking status: Never smoker Alcohol use details: socially Lack of Transportation: No Lack of Food: Never True Current Housing: I Have Housing Concerned About Future Housing: No Difficulty Paying Gas/Electric Bills: No Difficulty Paying for Meds: No Currently Unemployed: No Education: Bachelor's Degree Difficulty w/ Childcare or Family Care: No Living arrangements: alone Occupation/Education: retired Spiritual care concerns: No Comments At time of signature, agree with nursing past medical, surgical, social and family history. There is no relevant family history pertinent to the presenting complaint. Exam Narrative: GENERAL: This is a well-nourished, well-developed patient, in no apparent distress. HEAD: normocephalic, atraumatic. EYES: PERRL. Sclera clear/white. Vision is grossly intact. EARS: External ears normal NOSE: External nose normal NECK: Neck supple, non-tender without lymphadenopathy, masses or thyromegaly. CARDIOVASCULAR: Regular rate and rhythm without
--- NOTE | 2023-12-08 11:58 | PC.NURSE ---
Pt was given water, is unable to provide urine specimen
== END 2023-12-08 12:01 | disposition left against medical advice (07) ==
PROVIDERS: Emergency Provider Nurse Practitioner Family; PCP Family Medicine
DX: M54.50 Low back pain, unspecified (principal); R10.32 Left lower quadrant pain; I10 Essential (primary) hypertension; R73.03 Prediabetes; E78.00 Pure hypercholesterolemia, unspecified; E66.9 Obesity, unspecified; Z68.31 Body mass index [BMI] 31.0-31.9, adult
CPT/HCPCS: 74018; 99213; G0463

== ENCOUNTER 2023-12-09 08:57 | Emergency (ER) | payer MEDICARE, SELFPAY ==
--- NOTE | ~2023-12-09 | CT_ITS ---
EXAMINATION: CT abdomen pelvis w con DATE: 12/09/2023 10:29 INDICATION: Left-sided abdominal pain. Dysuria. TECHNIQUE: Computed tomography (CT) of the abdomen and pelvis was performed with 100 mL Omnipaque-350 intravenous contrast. Automated exposure control and iterative reconstruction technique were employe d. The dose-length product was 1288.01 mGy-cm. COMPARISON: CT dated 09/10/2022 FINDINGS: Lung bases are clear. Heart size is normal. No pericardial or pleural effusion. Cholecystectomy clips the gallbladder fossa. There are a few subcentimeter hepatic cysts. Spleen and bilateral adrenal gla nds are normal. There is mild fatty atrophy of the pancreas. Tiny low-attenuation likely cyst at the upper pole the left kidney which is too small to thoroughly characterize. Bilateral ureters are unrem arkable. No urolithiasis or hydronephrosis. There appears to be mild hyperemia in the fat immediately surrounding the otherwise normal-appearing bladder. Prostatomegaly measuring 5.4 x 4.3 cm . Bowels i ncluding the appendix are normal. No free intraperitoneal gas or fluid. No pathologically enlarged ab dominal or pelvic lymphadenopathy. No significant change in a large nonaggressive appearing lytic les ion occupying a significant portion of the right iliac wing with passive few thickened trabecula and with large central region of macroscopic fat attenuation most likely benign. IMPRESSION: 1. There is mild hyperemia in the fat surrounding the otherwise normal bladder which could be seen wi th cystitis. Correlate with urinalysis. 2. No urolithiasis or hydronephrosis. 3. Prostatomegaly. Reviewed, dictated and finalized at location A. IMPRESSION: 1. There is mild hyperemia in the fat surrounding the otherwise normal bladder which could be seen with cystitis. Correlate with urinalysis. 2. No urolithiasis or hydronephrosis. 3. Prostatomegaly.
[2023-12-09 09:03] VITALS: BP 142/83; PULSE 79; RESP 18; TEMP 36.6; O2SAT 100
[2023-12-09 09:32] LABS: Basophils Absolute Auto 0.1 K/mm3 (0.0-0.1); Basophils Percent Auto 1.3 % (0.2-1.2); Eosinophils Absolute Auto 0.1 K/mm3 (0-0.3); Eosinophils Percent Auto 1.5 % (0-4.4); Hematocrit 44.6 % (42.0-52.0); Hemoglobin 15.4 g/dL (14.0-18.0); Immature Granulocyte Absolute 0.01 K/mm3 (0.00-0.031); Immature Granulocyte Percent A 0.2 % (0-0.5); Lymphocytes Absolute Auto 1.65 K/mm3 (0.9-3.2); Lymphocytes Percent Auto 27.7 % (18.3-44.2); Mean Corpuscular HGB Conc 34.5 g/dl (32-36); Mean Corpuscular Hemoglobin 31.4 pg (26-34); Mean Corpuscular Volume 90.8 fl (80-100); Mean Platelet Volume 9.1 fl (7.4-10.4); Monocytes Absolute Auto 0.7 K/mm3 (0.1-0.6); Monocytes Percent Auto 12.1 % (2.6-8.5); Neutrophils Absolute Auto 3.4 K/mm3 (1.3-6.7); Neutrophils Percent Auto 57.2 % (45.5-73.1); Platelet Count Result 277 k/mm3 (150-375); Red Blood Count 4.91 M/mm3 (4.6-6.20); Red Cell Distribution Width 11.9 % (11.5-14.5)
--- NOTE | 2023-12-09 09:32 | ED.ABDPAIN ---
HPI - Abdominal Pain General Chief Complaint: Abdominal Pain Stated Complaint: abd pain Time Seen by Provider: 12/09/23 09:10 Source: patient Mode of arrival: ambulatory Limitations: no limitations History of Present Illness HPI narrative: This is a 68-year-old male that presents to the emergency department for left-sided lower abdominal pain. Ongoing over the last 5 days. The pain is sharp and largely constant. He has had associated difficulty urinating. The pain sometimes radiates into his back. He was evaluated at urgent care yesterday with an abdomen x-ray. Instructed to be seen at the ER for any worsening problems. He has continued to experience pain, he tried to call his primary provider, but he is out of the office this week. This prompted him to be seen in the ER. He took tramadol today, which he takes for chronic back pain. Denies fevers, vomiting, hematuria, or diarrhea. Related Data Home Medications Medication Instructions Recorded Confirmed multivitamin 1 tablet PO DAILY 09/29/19 12/08/23 polyethylene glycol 3350 17 gram 17 g PO DAILY 01/30/21 12/08/23 oral powder packet (Miralax) famotidine 20 mg tablet (Acid 20 mg PO BID 07/25/23 12/08/23 Pier Hand (famotidine)) Allergies Allergy/AdvReac Type Severity Reaction Status Date / Time codeine AdvReac Mild Nausea Verified 12/08/23 10:31 Review of Systems Review of Systems: CONSTITUTIONAL: Denies fever CARDIOVASCULAR: Denies chest pain, or edema. RESPIRATORY: Denies dyspnea. GASTROINTESTINAL: Reports abdominal pain. Denies nausea, vomiting, or diarrhea. GENITOURINARY: Reports dysuria. Denies hematuria. SKIN: Denies rash MUSCULOSKELETAL: Reports back pain NEUROLOGIC: Denies numbness, or weakness. All systems reviewed & are unremarkable except as noted in HPI and below PMFSH Past Medical History Medical History Allergic rhinitis Chronic back pain Chronic constipation Hypertension Obesity Prediabetes Pure hypercholesterolemia Thoracic spine fracture Surgical History Surgical History History of circumcision History of wisdom tooth extraction Hx laparoscopic cholecystectomy 09/11/22 Laparoscopic cholecystectomy with intraoperative cholangiogram Status post Dupuytren's fasciectomy Family History Family History Father Patient's father is in good health Sibling Family history of pancreatic cancer Mother Family history of malignant neoplasm of thyroid Social History Social History Social History: with 2 children. Retired from the health department. Nonsmoker. Occasional alcohol in moderation. No illicit substance abuse. He designates his sons as his surrogate decision makers any wishes to be a full code. Smoking status: Never smoker Alcohol use details: socially Lack of Transportation: No Lack of Food: Never True Current Housing: I Have Housing Concerned About Future Housing: No Difficulty Paying Gas/Electric Bills: No Difficulty Paying for Meds: No Currently Unemployed: No Education: Bachelor's Degree Difficulty w/ Childcare or Family Care: No Living arrangements: alone Occupation/Education: retired Spiritual care concerns: No Exam Narrative: GENERAL: Well-appearing, well-nourished, and in no acute distress. HEAD: Normocephalic, atraumatic. EYES: EOMI. CHEST: Clear to auscultation. No respiratory distress. No wheezes rales or rhonchi HEART: Regular rate and rhythm. No murmur heard. Normal peripheral pulses. ABDOMEN: Soft, nontender, nondistended, normal active bowel sounds. EXTREMITIES: Normal range of motion. No edema. SKIN: Warm, dry, no rash. NEURO: No focal deficits. Alert and oriented x3. PSYCH: Normal mood and affect Course Course Emergency Course: V
[2023-12-09 09:45] LABS: Partial Thromboplastin Time 33.8 Seconds (22.3-36.8)
[2023-12-09 09:46] LABS: Alanine Aminotransferase 31 U/L (6-50); Albumin Level 4.5 g/dL (3.5-5.1); Alkaline Phosphatase 68 U/L (38-126); Anion Gap 8 mmol/L (8-16); Aspartate Amino Transferase 28 U/L (17-59); Bilirubin,Total 1.3 mg/dL (0.2-1.3); Blood Urea Nitrogen 12 mg/dL (9-20); Calcium 9.7 mg/dL (8.4-10.2); Carbon Dioxide 25 mmol/L (22-30); Chloride 100 mmol/L (98-107); Creatine Kinase 68 U/L (55-170); Estimated CRCL calculation 122 ml/min; Estimated Glomerular Filt Rate > 60; Glucose 157 mg/dL (65-110); Lipase 33 U/L (23-300); Potassium 3.4 mmol/L (3.4-5.0); Sodium 133 mmol/L (137-145)
[2023-12-09 09:51] LABS: D Dimer 0.35 ug/mL (<0.48)
[2023-12-09 09:55] VITALS: BP 58/42
[2023-12-09 10:01] LABS: Bacteria Urine None Seen /hpf; Non Pathogenic Casts 0-2; RBC Urine 0-2 /hpf (0-2); Squamous Epithelial Cell Urine None Seen /hpf (Few); WBC Urine 0-5 /hpf (0-3)
[2023-12-09 10:02] VITALS: BP 106/63
[2023-12-09 10:04] LABS: Appearance Urine Clear (Clear); Color Urine Yellow (Yellow)
[2023-12-09 10:05] LABS: Bilirubin Urine Negative (Negative); Blood Urine Trace-intact (Negative); Glucose Urine UA Negative (Negative); Ketones Urine Negative (Negative); Leukocyte Esterase Ur Negative LEU/UL (Negative); Nitrate Urine Negative (Negative); Protein Urine Negative (Negative); Urobilinogen Urine 0.2 mg/dL (<2.0)
[2023-12-09] MEDS: SODIUM CHLORIDE 0.9% IV 500 ML 999 ML IV CONT (10:05)
[2023-12-09 10:06] LABS: Add Urine Microscopic? YES
[2023-12-09 11:03] VITALS: BP 113/65; PULSE 60; RESP 17; O2SAT 100
[2023-12-09 11:57] VITALS: BP 107/70; PULSE 63; RESP 18; O2SAT 99
== END 2023-12-09 11:58 | disposition home or self-care (01) ==
PROVIDERS: Emergency Provider Physician Assistant; PCP Family Medicine
DX: R10.32 Left lower quadrant pain (principal); N40.0 Benign prostatic hyperplasia without lower urinary tract symptoms; I10 Essential (primary) hypertension; G89.29 Other chronic pain
CPT/HCPCS: 36415; 74177; 80053; 81001; 82550; 83690; 85025; 85380; 85610; 85730; 99284; J7040; Q9967

== ENCOUNTER 2023-12-16 11:41 | Emergency (ER) | payer MEDICARE, SELFPAY ==
[2023-12-16 11:43] VITALS: BP 119/73; PULSE 87; RESP 16; TEMP 36.4; O2SAT 98
--- NOTE | 2023-12-16 12:45 | PC.NURSE ---
This RN agrees with assessment and charting of SN Ramirez.
[2023-12-16 12:46] VITALS: BP 119/69; PULSE 57; RESP 20; O2SAT 98
--- NOTE | 2023-12-16 13:28 | ED.MALEGU ---
HPI - Male Genitourinary General Chief complaint: Urogenital-Male Stated complaint: urinary retention Time Seen by Provider: 12/16/23 13:27 Source: patient Mode of arrival: ambulatory Limitations: no limitations History of Present Illness HPI Narrative: Ollie is a 68-year-old male patient presenting to the emergency room today with complaints of urinary retention, difficulty urinating. Reports he has not Peed since around 630 last night. Is having pain and swelling over the suprapubic area. Was seen in the ER on the and was straight cath for urine at that time. Had a CT completed and showed that he had large prostate. Seen Dr. Mc-U[facility] yesterday and was started on some new medications for BPH. Dyer catheter was placed in the ER and 1400 mL was initially drained Related Data Home Medications Medication Instructions Recorded Confirmed multivitamin 1 tablet PO DAILY 09/29/19 12/08/23 polyethylene glycol 3350 17 gram 17 g PO DAILY 01/30/21 12/08/23 oral powder packet (Miralax) famotidine 20 mg tablet (Acid 20 mg PO BID 07/25/23 12/08/23 Postpartum Nurse (famotidine)) Allergies Allergy/AdvReac Type Severity Reaction Status Date / Time codeine AdvReac Mild Nausea Verified 12/08/23 10:31 Review of Systems Review of Systems: Pertinent positives per HPI. Patient denies any fever, chills, rash, headache, visual changes, dizziness, cough, runny nose, sore throat, shortness of breath, chest pain, palpitations, nausea, vomiting, diarrhea, constipation, abdominal pain,. PMFSH Past Medical History Medical History Allergic rhinitis BPH (benign prostatic hyperplasia) Chronic back pain Chronic constipation Hypertension Obesity Prediabetes Pure hypercholesterolemia Thoracic spine fracture Surgical History Surgical History History of circumcision History of wisdom tooth extraction Hx laparoscopic cholecystectomy 09/11/22 Laparoscopic cholecystectomy with intraoperative cholangiogram Status post Dupuytren's fasciectomy Family History Family History Father Patient's father is in good health Sibling Family history of pancreatic cancer Mother Family history of malignant neoplasm of thyroid Social History Social History Social History: with 2 children. Retired from the health department. Nonsmoker. Occasional alcohol in moderation. No illicit substance abuse. He designates his sons as his surrogate decision makers any wishes to be a full code. Smoking status: Never smoker Alcohol use details: socially Lack of Transportation: No Lack of Food: Never True Current Housing: I Have Housing Concerned About Future Housing: No Difficulty Paying Gas/Electric Bills: No Difficulty Paying for Meds: No Currently Unemployed: No Education: Bachelor's Degree Difficulty w/ Childcare or Family Care: No Living arrangements: alone Occupation/Education: retired Spiritual care concerns: No Comments At the time of my signature, I reviewed and agree with the nursing past medical, surgical, social, and family history. There is no relevant family history pertinent to the patient complaint. Exam Narrative: General: Well-developed, well nourished, in no apparent distress. Head: Normocephalic, atraumatic. Cardio: Regular rate and rhythm, s1 and s2 normal, no murmur appreciated. Resp: Clear to auscultation bilaterally, no rhonchi, rales, wheezing or rubs. Abdomen: Soft, pliable, bowel sounds present in all quadrants, non-tender to palpation, no organomegly, no CVAT tenderness. : Dyer catheter in place-freely draining Course Course Emergency Course: Portions of this record may have been created with voice recognition software. Vital Signs Vital
[2023-12-16 13:42] LABS: Appearance Urine Turbid (Clear); Bacteria Urine None Seen /hpf; Bilirubin Urine Negative (Negative); Blood Urine Negative (Negative); Color Urine Yellow (Yellow); Glucose Urine UA Negative (Negative); Ketones Urine Negative (Negative); Leukocyte Esterase Ur Negative LEU/UL (Negative); Nitrate Urine Negative (Negative); Non Pathogenic Casts 0-2; Protein Urine Trace mg/dL (Negative); Specific Grav Ur 1.017 (1.001-1.035); Squamous Epithelial Cell Urine None Seen /hpf (Few); WBC Urine 0-5 /hpf (0-3)
[2023-12-16 13:43] LABS: Basophils Absolute Auto 0.1 K/mm3 (0.0-0.1); Basophils Percent Auto 0.7 % (0.2-1.2); Eosinophils Percent Auto 0.4 % (0-4.4); Hematocrit 40.4 % (42.0-52.0); Hemoglobin 14.2 g/dL (14.0-18.0); Immature Granulocyte Absolute 0.02 K/mm3 (0.00-0.031); Immature Granulocyte Percent A 0.3 % (0-0.5); Lymphocytes Percent Auto 15.6 % (18.3-44.2); Mean Corpuscular HGB Conc 35.1 g/dl (32-36); Mean Corpuscular Hemoglobin 31.5 pg (26-34); Mean Corpuscular Volume 89.6 fl (80-100); Mean Platelet Volume 9.2 fl (7.4-10.4); Monocytes Absolute Auto 0.9 K/mm3 (0.1-0.6); Monocytes Percent Auto 11.7 % (2.6-8.5); Neutrophils Absolute Auto 5.5 K/mm3 (1.3-6.7); Neutrophils Percent Auto 71.3 % (45.5-73.1); Platelet Count Result 261 k/mm3 (150-375); Red Blood Count 4.51 M/mm3 (4.6-6.20); Red Cell Distribution Width 11.9 % (11.5-14.5); White Blood Count 7.7 K/mm3 (4.5-10.0)
[2023-12-16 13:45] LABS: Add Urine Microscopic? YES
[2023-12-16 14:01] LABS: Alanine Aminotransferase 32 U/L (6-50); Albumin Level 4.1 g/dL (3.5-5.1); Alkaline Phosphatase 64 U/L (38-126); Anion Gap 6 mmol/L (4-12); Aspartate Amino Transferase 26 U/L (17-59); Blood Urea Nitrogen 18 mg/dL (9-20); Calcium 9.9 mg/dL (8.4-10.2); Carbon Dioxide 28 mmol/L (22-30); Chloride 97 mmol/L (98-107); Estimated CRCL calculation 110 ml/min; Estimated Glomerular Filt Rate > 60; Glucose 143 mg/dL (65-110); Potassium 3.8 mmol/L (3.4-5.0); Sodium 131 mmol/L (137-145)
[2023-12-16 14:04] VITALS: PULSE 68; RESP 17; O2SAT 100
== END 2023-12-16 14:16 | disposition home or self-care (01) ==
PROVIDERS: Emergency Provider Nurse Practitioner Family; PCP Family Medicine
DX: N40.1 Benign prostatic hyperplasia with lower urinary tract symptoms (principal); R33.8 Other retention of urine; I10 Essential (primary) hypertension; E66.9 Obesity, unspecified; E78.00 Pure hypercholesterolemia, unspecified; R73.03 Prediabetes; Z90.49 Acquired absence of other specified parts of digestive tract
CPT/HCPCS: 36415; 51702; 80053; 81001; 85025; 99283

== ENCOUNTER 2023-12-16 14:56 | Emergency (ER) | payer MEDICARE, SELFPAY ==
[2023-12-16 14:59] VITALS: BP 126/73; PULSE 85; RESP 24; TEMP 36.3; O2SAT 100
--- NOTE | 2023-12-16 15:17 | ECG_ITS ---
Measurements Intervals [place] Rate: 62 P: 17 GA: 184 QRS: 1 QRSD: 114 T: 10 QT: 447 QTc: 457 Interpretive Statements SINUS RHYTHM NONSPECIFIC T-WAVE ABNORMALITY COMPARED TO ECG 05/03/2023 12:31:40 NO SIGNIFICANT CHANGES Electronically Signed On 12-17-2023 12:17:37 CDT by Bianka Martinez M.D.
--- NOTE | 2023-12-16 15:20 | PC.NURSE ---
This RN agrees with assessment and charting of SN Violet.
[2023-12-16] MEDS: SODIUM CHLORIDE 0.9% IV 1,000 ML 999 ML IV CONT (16:47)
--- NOTE | 2023-12-16 16:50 | ED.GENADULT ---
HPI - General Adult General Chief complaint: Unspecified Stated complaint: feeling faint Time Seen by Provider: 12/16/23 16:48 Related Data Home Medications Medication Instructions Recorded Confirmed multivitamin 1 tablet PO DAILY 09/29/19 12/08/23 polyethylene glycol 3350 17 gram 17 g PO DAILY 01/30/21 12/08/23 oral powder packet (Miralax) famotidine 20 mg tablet (Acid 20 mg PO BID 07/25/23 12/08/23 Secondary English Teacher (famotidine)) Allergies Allergy/AdvReac Type Severity Reaction Status Date / Time codeine AdvReac Mild Nausea Verified 12/08/23 10:31 [facility] Past Medical History Medical History Allergic rhinitis BPH (benign prostatic hyperplasia) Chronic back pain Chronic constipation Hypertension Obesity Prediabetes Pure hypercholesterolemia Thoracic spine fracture Surgical History Surgical History History of circumcision History of wisdom tooth extraction Hx laparoscopic cholecystectomy 09/11/22 Laparoscopic cholecystectomy with intraoperative cholangiogram Status post Dupuytren's fasciectomy Family History Family History Father Patient's father is in good health Sibling Family history of pancreatic cancer Mother Family history of malignant neoplasm of thyroid Social History Social History Social History: with 2 children. Retired from the health department. Nonsmoker. Occasional alcohol in moderation. No illicit substance abuse. He designates his sons as his surrogate decision makers any wishes to be a full code. Smoking status: Never smoker Alcohol use details: socially Lack of Transportation: No Lack of Food: Never True Current Housing: I Have Housing Concerned About Future Housing: No Difficulty Paying Gas/Electric Bills: No Difficulty Paying for Meds: No Currently Unemployed: No Education: Bachelor's Degree Difficulty w/ Childcare or Family Care: No Living arrangements: alone Occupation/Education: retired Spiritual care concerns: No Course Vital Signs Vital signs: Vital Signs Temperature 36.3 C L 12/16/23 14:59 Pulse Rate 85 12/16/23 14:59 Respiratory Rate 24 H 12/16/23 14:59 Blood Pressure 126/73 12/16/23 14:59 Pulse Oximetry 100 12/16/23 14:59 Oxygen Delivery Room Air 12/16/23 14:59 Temperature 36.3 C L 12/16/23 14:59 Pulse Rate 85 12/16/23 14:59 Respiratory Rate 24 H 12/16/23 14:59 Blood Pressure 126/73 12/16/23 14:59 Pulse Oximetry 100 12/16/23 14:59 Oxygen Delivery Room Air 12/16/23 14:59 Medical Decision Making Vital Signs Vital Signs: Vital Signs Temperature 36.3 C L 12/16/23 14:59 Pulse Rate 85 12/16/23 14:59 Respiratory Rate 24 H 12/16/23 14:59 Blood Pressure 126/73 12/16/23 14:59 Pulse Oximetry 100 12/16/23 14:59 Oxygen Delivery Room Air 12/16/23 14:59 Temperature 36.3 C L 12/16/23 14:59 Pulse Rate 85 12/16/23 14:59 Respiratory Rate 24 H 12/16/23 14:59 Blood Pressure 126/73 12/16/23 14:59 Pulse Oximetry 100 12/16/23 14:59 Oxygen Delivery Room Air 12/16/23 14:59 Discharge Plan Discharge Prescriptions: No Action losartan-hydrochlorothiazide 100-25 mg tablet 1 tablet PO DAILY Qty: 90 3RF metoprolol succinate 100 mg tablet extended release 24 hr 100 mg PO DAILY Qty: 90 3RF multivitamin Tablet 1 tablet PO DAILY polyethylene glycol 3350 [Miralax] 17 gram Powder In Packet 17 g PO DAILY famotidine [Acid Secondary English Teacher (famotidine)] 20 mg tablet 20 mg PO BID amlodipine 10 mg tablet 10 mg PO DAILY Qty: 90 3RF montelukast 10 mg tablet 10 mg PO QNOON Qty: 90 1RF rosuvastatin 10 mg tablet 10 mg PO DAILY Qty: 90 2RF tramadol 50 mg tablet 50 mg PO Q8H PRN (Reason: pain
[2023-12-16 16:53] LABS: Basophils Absolute Auto 0.1 K/mm3 (0.0-0.1); Basophils Percent Auto 0.7 % (0.2-1.2); Eosinophils Percent Auto 0.1 % (0-4.4); Hematocrit 39.7 % (42.0-52.0); Hemoglobin 14.1 g/dL (14.0-18.0); Immature Granulocyte Absolute 0.04 K/mm3 (0.00-0.031); Immature Granulocyte Percent A 0.6 % (0-0.5); Lymphocytes Absolute Auto 1.17 K/mm3 (0.9-3.2); Lymphocytes Percent Auto 16.2 % (18.3-44.2); Mean Corpuscular HGB Conc 35.5 g/dl (32-36); Mean Corpuscular Hemoglobin 31.8 pg (26-34); Mean Corpuscular Volume 89.4 fl (80-100); Mean Platelet Volume 9.1 fl (7.4-10.4); Monocytes Absolute Auto 0.8 K/mm3 (0.1-0.6); Monocytes Percent Auto 10.5 % (2.6-8.5); Neutrophils Absolute Auto 5.2 K/mm3 (1.3-6.7); Neutrophils Percent Auto 71.9 % (45.5-73.1); Platelet Count Result 258 k/mm3 (150-375); Red Blood Count 4.44 M/mm3 (4.6-6.20); Red Cell Distribution Width 11.9 % (11.5-14.5); White Blood Count 7.2 K/mm3 (4.5-10.0)
[2023-12-16 17:04] LABS: Alanine Aminotransferase 31 U/L (6-50); Alkaline Phosphatase 63 U/L (38-126); Anion Gap 3 mmol/L (4-12); Aspartate Amino Transferase 25 U/L (17-59); Bilirubin,Total 1.2 mg/dL (0.2-1.3); Blood Urea Nitrogen 18 mg/dL (9-20); Calcium 9.6 mg/dL (8.4-10.2); Carbon Dioxide 29 mmol/L (22-30); Chloride 98 mmol/L (98-107); Estimated CRCL calculation 124 ml/min; Estimated Glomerular Filt Rate > 60; Glucose 130 mg/dL (65-110); Potassium 3.5 mmol/L (3.4-5.0); Sodium 130 mmol/L (137-145)
--- NOTE | 2023-12-16 19:08 | ED.GENADULT ---
HPI - General Adult General Chief complaint: Unspecified Stated complaint: feeling faint Time Seen by Provider: 12/16/23 16:48 Source: patient and family (son) Mode of arrival: ambulatory Limitations: no limitations History of Present Illness HPI narrative: 68-year-old male who was seen earlier in the emergency department for acute urinary retention. He had an indwelling Dyer catheter placed and was discharged with it to remain in place. Shortly thereafter he was waiting in the waiting room and started feeling faint and lightheaded, breathing fast. he does note that this is a common response lately and has occurred multiple times in different healthcare settings such as when having an IV placed, having an incision and drainage, and even while having the Dyer placed. He states he is feeling better now; has been triaged/checked in for several hours by the time of evaluation by myself. Related Data Home Medications Medication Instructions Recorded Confirmed multivitamin 1 tablet PO DAILY 09/29/19 12/08/23 polyethylene glycol 3350 17 gram 17 g PO DAILY 01/30/21 12/08/23 oral powder packet (Miralax) famotidine 20 mg tablet (Acid 20 mg PO BID 07/25/23 12/08/23 Perforator Loader (famotidine)) Allergies Allergy/AdvReac Type Severity Reaction Status Date / Time codeine AdvReac Mild Nausea Verified 12/08/23 10:31 [facility] Past Medical History Medical History Acute urinary retention Allergic rhinitis BPH (benign prostatic hyperplasia) Chronic back pain Chronic constipation Hypertension Obesity Prediabetes Pure hypercholesterolemia Thoracic spine fracture Surgical History Surgical History History of circumcision History of wisdom tooth extraction Hx laparoscopic cholecystectomy 09/11/22 Laparoscopic cholecystectomy with intraoperative cholangiogram Status post Dupuytren's fasciectomy Family History Family History Father Patient's father is in good health Sibling Family history of pancreatic cancer Mother Family history of malignant neoplasm of thyroid Social History Social History Social History: with 2 children. Retired from the health department. Nonsmoker. Occasional alcohol in moderation. No illicit substance abuse. He designates his sons as his surrogate decision makers any wishes to be a full code. Smoking status: Never smoker Alcohol use details: socially Lack of Transportation: No Lack of Food: Never True Current Housing: I Have Housing Concerned About Future Housing: No Difficulty Paying Gas/Electric Bills: No Difficulty Paying for Meds: No Currently Unemployed: No Education: Bachelor's Degree Difficulty w/ Childcare or Family Care: No Living arrangements: alone Occupation/Education: retired Spiritual care concerns: No Exam Narrative: GENERAL: Well-appearing, well-nourished, and in no acute distress. HEAD: Normocephalic, atraumatic. EYES: Non injected, non icteric ENT: Nares clear, no rhinorrhea or epistaxis. NECK: Supple. CHEST: Clear to auscultation without wheezes, crackles. No respiratory distress. Speaking in full sentences, nonlabored HEART: Regular rate and rhythm. ABDOMEN: Soft, nondistended. : Indwelling Dyer catheter in place draining yellow urine EXTREMITIES: Normal range of motion. No edema. SKIN: Warm, dry, no rash. NEURO: No focal deficits. Alert and oriented x3. PSYCH: Normal mood and affect. Course Vital Signs Vital signs: Vital Signs Temperature 97.3 F L 12/16/23 14:59 Pulse Rate 85 12/16/23 14:59 Respiratory Rate 24 H 12/16/23 14:59 Blood Pressure 126/73 12/16/23 14:59 Pulse Oximetry 100 12/16/23 14:59 Oxygen Delivery Room Air 12/16/23 14:59 Temperature 97.3
[2023-12-16 19:43] VITALS: BP 138/75; PULSE 68; RESP 17; O2SAT 99
== END 2023-12-16 19:44 | disposition home or self-care (01) ==
PROVIDERS: Emergency Medicine; Emergency Provider Student in an Organized Health Care Education/Training Program; PCP Family Medicine
DX: F41.1 Generalized anxiety disorder (principal); I10 Essential (primary) hypertension; E66.9 Obesity, unspecified; Z68.32 Body mass index [BMI] 32.0-32.9, adult; E78.00 Pure hypercholesterolemia, unspecified
CPT/HCPCS: 36415; 51702; 80053; 81001; 85025; 93005; 96360; 99284; J7030

== ENCOUNTER 2024-06-04 12:51 | Outpatient (CLI) | payer MEDICARE, SELFPAY ==
--- NOTE | ~2024-06-04 | XR_ITS ---
XR hip LT 2V w AP pelvis Ordering provider: Timur Marroquin PA-C History: . LEFT HIP PAIN . Comparison: None. FINDINGS: BONES: No acute fracture or dislocation. HIP JOINT SPACES: Mild osteoarthritic changes. SACROILIAC JOINT SPACES/LUMBAR SPINE: The sacroiliac joint spaces shows osteoarthritic changes. Mild degenerative changes of the visualized lower lumbar spine. PUBIC SYMPHYSIS: Normal. SOFT TISSUES: Normal. IMPRESSION: No acute osseous abnormality pelvis and left hip. Reviewed, dictated and finalized at location A.
== END 2024-06-04 12:52 | disposition home or self-care (01) ==
PROVIDERS: PCP Family Medicine; Visit Provider Physician Assistant
DX: M25.552 Pain in left hip (principal); M89.8X8 Other specified disorders of bone, other site
CPT/HCPCS: 73502

== ENCOUNTER 2025-03-28 12:17 | Outpatient (CLI) | payer MEDICARE, SELFPAY ==
--- NOTE | ~2025-03-28 | US_ITS ---
Renal-Bladder ultrasound Clinical History: Abdominal pain Technique: Real-time sonographic imaging of the kidneys and urinary bladder was performed. Findings: The right kidney measures 11.3 cm in length and the left kidney measures 12.8 cm. There is no hydronephrosis or renal calculus identified. Renal cortical echogenicity is within normal limits. No renal mass lesion is identified. The urinary bladder is moderately distended at the time of this exam. No intraluminal echoes are iden tified. No abnormal wall thickening is seen. Prostate gland enlarged. Impression: Unremarkable ultrasound of the kidneys and urinary bladder. Enlarged prostate gland. Reviewed, dictated and finalized at location . Impression: Unremarkable ultrasound of the kidneys and urinary bladder. Enlarged prostate gland.
--- OUTSIDE RECORDS SUMMARY | 2025-03-28 12:21 | XMS_ITS | Clinical Summary ---
Author Organization [facility] [place] [address] Address [address] [place] [address] Care Team Providers Care Instructional Technology Facilitator Name Role Phone Rodrigo Roger MD Primary Care Provider Allergies Active Allergy Reactions Criticality Noted Date Comments Codeine Unknown 10/09/2020 Medications Hospital, Clinic, or Other Facility Administered Medication Ordered Dose Route Frequency Start Date End Date Status aminophylline 250 mg/10 mL injection 200 mgIndications:Chest pain, unspecified type 200 mg IV As needed 01/27/2023 Active Social History Tobacco Use Types Packs/Day Years Used Date Smoking Tobacco: Never Assessed Personal Safety Answer Date Recorded Getting School Help Needed Not on file 11/28 Sex and Gender Information Value Date Recorded Sex Assigned at Not on file Legal 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
--- OUTSIDE RECORDS SUMMARY | 2025-03-28 12:21 | XMS_ITS | Clinical Summary ---
Author Organization [facility] Address [address] [place] [id number] Care Team Providers Care Cart Driver Name Role Phone Unavailable Primary Care Provider Unavailabl e Social History Tobacco Use Types Packs/Day Years Used Date Smoking Tobacco: Never Assessed Sex and Gender Information Value Date Recorded Sex Assigned at Not on file Legal Sex Male 4:59 PM CDT Gender Identity Not on file Sexual Orientation Not on file Last Filed Vital Signs Vital Sign Reading Time Taken Comments Blood Pressure 122/82 03/16/2015 1:52 PM CDT Pulse 76 03/16/2015 1:52 PM CDT Temperature - - Respiratory Rate - - Oxygen Saturation - - Inhaled Oxygen Concentration - - Weight - - Height - - Body Mass Index - - Plan of Treatment Health Maintenance Due Date Last Done Comments Colorectal Cancer Screening Colonoscopy (10 Years) 1957 Hepatitis C 1975 DTaP, Tdap and Td Vaccines ( 1 - Tdap) 01/20/1976 Pneumococcal Vaccine: 50+ Ye ars (1 of 1 - PCV) 2007 Zoster Vaccines (1 of 2) 2007 COVID-19 Vaccine ( - 2023-2 5 season) 2024 RSV Immunization or 60+ Years (1 - 1-dose 75+ series) 01/20/2032 Meningococcal B Vaccine Aged Out No l onger eligible based on patient's age to complete this topic Meningococcal Vaccine Aged Out No lul hazel eligible based on patient's age to complete this topic RSV Immunizations Under 20 Months Aged Out No longer eligible based on patient's age to complete this topic
--- OUTSIDE RECORDS SUMMARY | 2025-03-28 12:21 | XMS_ITS | Referral Summary ---
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
== END 2025-03-28 12:18 | disposition home or self-care (01) ==
PROVIDERS: PCP Family Medicine; Visit Provider Physician Assistant Medical
DX: N40.0 Benign prostatic hyperplasia without lower urinary tract symptoms (principal); R10.9 Unspecified abdominal pain
CPT/HCPCS: 76775